=== PATIENT | female | born 1960 | race Caucasian/White ===

== ENCOUNTER → 2016-05-24 | Outpatient (CLI) | payer BC ==
--- NOTE | 2016-05-24 09:00 | REP ---
Clinical: Pain. Technique: AP, lateral, bilateral oblique views of the right foot. Findings: Mild diffuse osteopenia and age-related degenerative changes are appreciated. There is no evidence for acute fracture or dislocation. Lateral view suggests pes planus. Impression: Osteopenia and age-related changes. Signed by Kit Pedraza MD 05/24/2016 08:51 A
--- NOTE | 2016-05-24 12:26 | REP ---
CHEST, TWO VIEWS: COMPARISON: 10/19/2014 There is no evidence of acute infiltrate. No pleural effusion is seen. The heart is normal in size. The mediastinal silhouette is unremarkable. The visualized osseous structures are intact. IMPRESSION: No acute pulmonary disease. Signed by Mathew Jalloh MD 05/24/2016 12:57 P
[2016-05-24 13:25] LABS: BLOOD UREA NITROGEN 19 MG/DL (7-18); CARBON DIOXIDE LEVEL 26 MEQ/L (21-32); CHLORIDE LEVEL 107 MEQ/L (98-107); CREATININE FOR GFR 0.75 MG/DL (0.55-1.02); GLOMERULAR FILTRATION RATE > 60.0 (>51); GLUCOSE, FASTING 123 MG/DL (70-105); POTASSIUM SERUM 4.3 MEQ/L (3.5-5.1); SODIUM LEVEL 142 MEQ/L (136-145)
[2016-05-24 13:26] LABS: ANION GAP 9 MEQ/L (8-16); MAGNESIUM LEVEL 2.3 MG/DL (1.8-2.4); THYROXINE (T4) 12.5 UG/DL (4.5-12.0)
== END ==
LOC: M WUC 08:34
PROVIDERS: ATTEND Nurse Practitioner Family
DX: E03.9 Hypothyroidism, unspecified (principal); R05 Cough; M25.571 Pain in right ankle and joints of right foot

== ENCOUNTER → 2016-07-12 | Outpatient (CLI) | payer BC ==
--- NOTE | 2016-07-13 07:20 | REP ---
MRI RIGHT ANKLE: TECHNIQUE: Sagittal proton density, STIR, axial proton density fat sat, T1, coronal proton density, STIR. The Achilles, anterior tibial, posterior tibial, flexor hallucis longus, flexor digitorum longus and peroneal tendons all appear intact. However, there is mild fluid surrounding the posterior tibial tendon with mild increased signal at its distal aspect, possibly representing mild tenosynovitis and tendinitis or possibly a partial tear of its distal aspect. Anterior and posterior talofibular as well as deltoid ligaments and calcaneofibular ligament are all intact. Plantar tendon is intact. There is no evidence of plantar fascitis. There is a small joint effusion. There is no ganglion cyst. There is marrow edema in the distal end of the fibula. No other abnormal marrow signal is seen. No osteochondral defects are seen at the tibiotalar joint. IMPRESSION: Possible tendinitis or partial tear distal posterior tibial tendon. No other evidence of tendon or ligament tear. Marrow edema in the distal fibula of uncertain significance. This could be post-traumatic bone bruising. Signed by Mathew Jalloh MD 07/13/2016 04:05 P
== END ==
LOC: M RAD 12:30
PROVIDERS: ATTEND Podiatrist
DX: S96.801A Unspecified injury of other specified muscles and tendons at ankle and foot level, right foot, initial encounter (principal); X58.XXXA Exposure to other specified factors, initial encounter; Y93.9 Activity, unspecified; Y92.9 Unspecified place or not applicable; Y99.8 Other external cause status

== ENCOUNTER → 2016-08-27 | Outpatient (CLI) | payer BC ==
[2016-08-27 11:34] LABS: MEAN CORPUSCULAR HEMOGLOBIN 30.8 pg (27.0-33.0); MEAN CORPUSCULAR HGB CONC 34.2 g/dl (32.0-36.5); MEAN CORPUSCULAR VOLUME 90.2 fl (80.0-96.0); RED CELL DISTRIBUTION WIDTH 12.5 % (11.5-14.5); WHITE BLOOD COUNT 9.2 K/mm3 (4.0-10.0)
[2016-08-27 12:18] LABS: ALBUMIN 3.5 GM/DL (3.2-5.2); ALBUMIN/GLOBULIN RATIO 1.13 (1.00-1.93); ALKALINE PHOSPHATASE 102 U/L (45-117); ALT/SGPT 18 U/L (12-78); ANION GAP 5 MEQ/L (8-16); AST/SGOT 9 U/L (15-37); BILIRUBIN,TOTAL 0.4 MG/DL (0.2-1.0); BLOOD UREA NITROGEN 17 MG/DL (7-18); CALCIUM LEVEL 8.8 MG/DL (8.5-10.1); CARBON DIOXIDE LEVEL 28 MEQ/L (21-32); CHLORIDE LEVEL 109 MEQ/L (98-107); CHOLESTEROL LEVEL 178 MG/DL (<200); CREATININE FOR GFR 0.66 MG/DL (0.55-1.02); FREE T4 1.07 NG/DL (0.76-1.46); GLOMERULAR FILTRATION RATE > 60.0 (>51); GLUCOSE, FASTING 90 MG/DL (70-105); POTASSIUM SERUM 4.6 MEQ/L (3.5-5.1); SODIUM LEVEL 142 MEQ/L (136-145); TOTAL PROTEIN 6.6 GM/DL (6.4-8.2); TRIGLYCERIDES LEVEL 67 MG/DL (<150)
== END ==
LOC: M WUC 08:43
PROVIDERS: ATTEND Nurse Practitioner Family
DX: E78.00 Pure hypercholesterolemia, unspecified (principal)

== ENCOUNTER → 2016-09-21 | Outpatient (CLI) | payer BC ==
[~2016-09-21] MED LIST: AMOX875T2 PO; HYDR-3713 PO; IBUP200C10 PO; LEVA1TAB2 PO; MAGN1TAB25 PO; NORCOTAB PO; PREV1CAP PO; SENN1TAB2 PO; TYLE500T78 PO
--- NOTE | 2016-09-21 20:38 | ECGEPIP ---
Stationary ECG Study [facility] Test Date: 2016-09-21 Pat Name: DELMER BUSBY Department: Room: - Gender: F Cigarette Packer: YOSI : 1960 Requested By: Orlando Goetz Order Number: [id number] Reading MD: Orlando Ivey Measurements Intervals [place] Rate: 66 P: 55 NC: 196 QRS: 58 QRSD: 90 T: 51 QT: 401 QTc: 421 Interpretive Statements Normal sinus rhythm. Prominent R waves in V2 through V4. Lead placement versus RVH; rule out prior PWMI Different lead placement from 10/06/15 Electronically Signed On 09-21-2016 20:38:18 EDT by Orlando Ivey
== END ==
LOC: M EKG 12:56
PROVIDERS: ATTEND Podiatrist
DX: Z01.818 Encounter for other preprocedural examination (principal)

== ENCOUNTER → 2016-09-21 | Outpatient (CLI) | payer BC ==
[2016-09-21 09:13] LABS: BASO # 0.1 K/mm3 (0.0-0.2); BASO % 0.6 % (0.0-1.0); EOS # 0.3 K/mm3 (0.0-0.50); LARGE UNSTAINED CELL # 0.2 K/mm3 (0.0-0.4); LARGE UNSTAINED CELL % 2.1 % (0.0-4.0); LYMPH % 25.6 % (24.0-44.0); MEAN CORPUSCULAR HEMOGLOBIN 30.8 pg (27.0-33.0); MEAN CORPUSCULAR HGB CONC 33.9 g/dl (32.0-36.5); MEAN CORPUSCULAR VOLUME 90.9 fl (80.0-96.0); MONO # 0.8 K/mm3 (0.0-0.8); MONO % 6.8 % (0.0-5.0); NEUTROPHILS # 7.2 K/mm3 (1.8-7.7); PLATELET COUNT, AUTOMATED 208 k/mm3 (150-450); RED CELL DISTRIBUTION WIDTH 12.4 % (11.5-14.5); WHITE BLOOD COUNT 11.6 K/mm3 (4.0-10.0)
[2016-09-21 09:42] LABS: ANION GAP 7 MEQ/L (8-16); BLOOD UREA NITROGEN 19 MG/DL (7-18); CARBON DIOXIDE LEVEL 26 MEQ/L (21-32); CHLORIDE LEVEL 109 MEQ/L (98-107); CREATININE FOR GFR 0.65 MG/DL (0.55-1.02); GLOMERULAR FILTRATION RATE > 60.0 (>51); GLUCOSE, FASTING 87 MG/DL (70-105); POTASSIUM SERUM 4.8 MEQ/L (3.5-5.1); SODIUM LEVEL 142 MEQ/L (136-145)
== END ==
LOC: M WUC 08:04
PROVIDERS: ATTEND Podiatrist
DX: Z01.818 Encounter for other preprocedural examination (principal)

== ENCOUNTER → 2016-09-30 | Day surgery (SDC) | payer BC ==
[~2016-09-30] VITALS: Ht 157.5 cm; Wt 81.6 kg
[~2016-09-30] MED LIST changes: +BACITRACIN PWD 50,000 UNITS VIAL As Ordered ONE; +BUPIVACAINE HCL 0.5% 30 ML VIAL As Ordered ONE; +GLYCOPYRROLATE INJ 0.2 MG/ML 2 ML VIAL As Ordered ONE; +HYDROmorphone HCL 2 MG/ML 1ML VIAL (J1170) As Ordered ONE; +LIDOCAINE 2% INJ 100 MG/5 ML SDV (FOR ANES.) As Ordered ONE; +LIDOCAINE 2% MDV 20 ML VIAL As Ordered ONE; +LR 1,000 ML IV ONE; +LR 1,000 ML IV SCH; +METOCLOPRAMIDE INJ 10MG/2ML VIAL (J2765) As Ordered ONE; +METOCLOPRAMIDE INJ 10MG/2ML VIAL (J2765) IV ONE; +MIDAZOLAM INJ 2 MG/2 ML VIAL (J2250) As Ordered ONE; +NEOSPORIN GU IRRIG 20 ML VIAL As Ordered ONE; +NEOSTIGMINE 1MG/ML 5 ML SYRINGE (J2710) As Ordered ONE; +NORCO, ANEXSIA 5/325MG TABLET (HYDROcodone/ACETAMINOPHEN) PO PRN; +ONDANSETRON 4MG/2ML VIAL (J2405) As Ordered ONE; +ONDANSETRON 4MG/2ML VIAL (J2405) IV PRN; +PROPOFOL 200 MG/20 ML VIAL As Ordered ONE; +ROCURONIUM BROMIDE 50 MG/5 ML VIAL/SYRINGE As Ordered ONE; +dexameTHASONE 4 MG/ML 1ML VIAL (J1100) As Ordered ONE; +ePHEDrine SULFATE 25 MG/5 ML(5MG/ML) SYRINGE As Ordered ONE; +fentaNYL 100 MCG/2 ML INJECTION (J3010) As Ordered ONE
--- NOTE | 2016-09-30 12:13 | REP ---
REASON: Postop. Bandage material obscures bony detail. COMPARISON: Preoperative exam of 05/24/2016. Four portable views were obtained status post posterior tibial tendon repair. Fixation plate and screws seen affixing the os calcis. There are no other significant changes from the prior exam. Signed by Chriss Arrieta DO 09/30/2016 04:42 P
[2016-09-30 14:52] VITALS: BP 138/69
--- NOTE | 2016-09-30 16:40 | REP ---
C-ARM VIEWS RIGHT CALCANEUS: Multiple C-Arm views are performed of the right calcaneus. Metallic plate and screws are seen in the calcaneus. 40 seconds of fluoroscopy time utilized. The structures appear well aligned. Signed by Mathew Jalloh MD 09/30/2016 05:59 P
--- NOTE | 2016-10-01 19:47 | RO ---
DATE OF PROCEDURE: 09/30/2016 PREOPERATIVE DIAGNOSES: Posterior tibial tendon dysfunction, right foot. POSTOPERATIVE DIAGNOSES: Posterior tibial tendon dysfunction, right foot. PROCEDURES PERFORMED: 1. Debridement posterior tibial tendon right foot. 2. Flexor digitorum longus tendon transfer to the navicular with a 5.5 x 15 mm Arthrex biocomposite interference screw. 3. Medial calcaneal slide osteotomy with a right medical 8 mm calcaneal displacement plate with screw fixation. SURGEON: Orlando Goetz DPM TAKER OFF BRAKER MACHINE: None. SPECIMEN: Pathologic posterior tibial tendon. ANESTHESIA: ESTIMATED BLOOD LOSS: Less than 40 mL. HARDWARE UTILIZED: Arthrex biocomposite 5.5 x 15 mm interference screw. A right medical 8 [address] displacement place with nonlocking and locking screw configurations, nonlocking 3.5 x 30 mm times two and locking plates 3.5 x 28 and 3.5 x 26. IRRIGATION: Dilute bacitracin, neomycin, and polymyxin B solution. HEMOSTASIS: Thigh pneumatic tourniquet at 300 mmHg for inflation for 80 minutes with a 20 mm downtime and a reinflation for 28 minutes at the right thigh. DESCRIPTION OF OPERATION: On 09/05/2016, this 56-year-old white female was taken from her hospital room to the operating room and placed on the operating table in the supine position. Following the induction of intravenous (IV) sedation and local and regional anesthesia, the right lower extremity was prepped and draped in the usual aseptic manner. Thigh pneumatic tourniquet was then rapidly inflated to 300 mmHg. Attention was directed to the medial surface of the foot and the following procedure was performed: DEBRIDEMENT POSTERIOR TIBIAL TENDON RIGHT FOOT: Attention was directed to the patients right foot where an incision was made from the distal tip of the medial malleolus directly over the posterior tibial tendon and curving inferiorly under the navicular onto the medial sole of the foot. Dissection was then carried down to the flexor tendon sheath. All bleeders encountered were electrocoagulated. The flexor digitorum longus tendon sheath was entered. Considerable fluid was noted. Adhesions were noted of the complete tendon approximately from the insertion point to 4 cm superior. The tendon was fibrotic, thickened and pathologic, therefore was not salvageable. The tendon was then debrided from its insertion point to viable tendon. The following procedure was performed: FLEXOR DIGITORUM LONGUS TENDON TRANSFER TO THE NAVICULAR WITH ANCHORING WITH A 5.5 x 15 MM BIOCOMPOSITE INTERFERENCE SCREW: The flexor digitorum longus tendon sheath was then entered and the tendon was then traced down to the master knot of Best. Care was taken at the abductor hallucis area where there is noted to be numerous venous structures. This was dissected down with electrocautery. All bleeders encountered were electrocoagulated. Minimal bleeding was seen. Gelfoam was then placed right at the master knot of Best where the flexor digitorum longus tendon was transected and pulled into the operative site. Utilizing #2-FiberWire the distal aspect of the posterior tibial tendon was ligated to prevent migration of the posterior tibial tendon. A cut was then placed into the posterior tibial tendon and the flexor digitorum longus tendon was weaved through the tendon utilizing C-ARM imagery. A guidewire was placed into the navicular. When adequate placement was visualized a 5.5 drill was then introduced, creating a socket 5.5 x 15 mm in depth and then this was removed. Utilizing a speed-whip a fiber wire suture the flexor digitorum longus distal end was stitched, grabbed with a placement device and placed into the socket where a 5.5 x 15 mm screw was drilled into the socket holding the flexor digitorum longus tendon in place with good physiologic tension which was measured prior to placement. This was then oversewn over the screw. Physiologic tension was then placed on the posterior tibial tendon and this was sutured to the flexor digitorum longus tendo with 32 fiber wire. The wound was flushed with copious amounts of dilute bacitracin, neomycin, and polymyxin B solution. The flexor sheath was repaired with #2-0 Monocryl. Subcutaneous tissues were coapted and maintained using #4-0 Monocryl and the skin was coapted and maintained using #4-0 Prolene. A sterile dressing was temporarily applied following by quintin Harrington. Thigh pneumatic tourniquet was deflated. After 20 minutes it was replaced on the limb and the tourniquet was reinflated at 300 mmHg for 48 minutes. Attention was directed to the lateral side of the foot where the patient was placed in the lateral decubitus deposition with the lateral aspect of the right foot in a superior direction. A small 4 cm incision was then placed over the lateral calcaneus paralleling the peroneal tendons at a 45 degree angle to the plantar surface of the foot making care to ensure that the lateral tuberosity was visible in the distal wound. Care was taken with dissection to avoid the serial nerve. This was retracted in a proximal direction. Peroneal tendons were left in a more distal position. Incision was made utilizing a periosteal elevator just where the osteotomy would be performed. A osteotomy was created through the lateral aspect of the heel, taken to the medial periostia. This was completed with an osteotome and loosened so medial distraction would be obtainable. Utilizing a right medial 8 mm displacement plate with the displacement arm appropriately position on the proximal segment, the calcaneus was transposed 8 mm and fixated with nonlocking screws on the proximal segment and the distal segment had locking screw interfaces, locking screws were utilized. Screws utilized were a nonlocking 30 mm times two along the proximal segment. The distal segment had locking screw configuration of 3.5 x 28 and a 3.5 x 26 mm screws. Intraoperative C-ARM imagery revealed good position of the distal fragment with no dorsal displacement of the osteotomy. The wound was flushed with copious amount of dilute bacitracin, neomycin, and polymyxin B solution. The lateral cortex was then coapted and maintained with #2-0 Monocryl in a simple interrupted type fashion. Subcutaneous tissues were coapted and maintained with #4-0 Monocryl in a simple interrupted type fashion. Skin incision was coapted and maintained using #4-0 Prolene and a simple interrupted in a mattress type fashion. A TLS drain was then placed in the wound it was placed under the deep closure in direct contact with the calcaneus. It was exiting proximally out of the foot and sutured in place with #3-0 silk. Bandages were applied with adaptic 4x4, 4 x4 splint and Kerlix. Thigh pneumatic tourniquet was deflated and a Welsh compressive dressing with a posterior splint was then applied with the patient's foot at a right angle to the lower leg. TLS drain was functioning satisfactorily. Patient will be further monitored by anesthesia. Postoperative instructions were given upon discharge.
== END | disposition home or self-care (01) ==
LOC: M SDC 05:58
PROVIDERS: ATTEND Podiatrist
DX: M76.821 Posterior tibial tendinitis, right leg (principal); M66.371 Spontaneous rupture of flexor tendons, right ankle and foot; K21.9 Gastro-esophageal reflux disease without esophagitis; Z88.2 Allergy status to sulfonamides; Z88.6 Allergy status to analgesic agent; Z79.899 Other long term (current) drug therapy; Z90.710 Acquired absence of both cervix and uterus
CPT/HCPCS: 27691; 28300; 73630; 76000; 88302; 97116; C1776; J0690; J1100; J1170; J2250; J2405; J2710; J2765; J3010

== ENCOUNTER 2016-12-25 12:23 | Day surgery (SDC) | payer BC ==
[~2016-12-25] VITALS: Ht 157.5 cm; Wt 84.8 kg
[~2016-12-25 12:23] MED LIST changes: -AMOX875T2 PO; -BACITRACIN PWD 50,000 UNITS VIAL As Ordered ONE; -BUPIVACAINE HCL 0.5% 30 ML VIAL As Ordered ONE; -GLYCOPYRROLATE INJ 0.2 MG/ML 2 ML VIAL As Ordered ONE; -HYDR-3713 PO; -HYDROmorphone HCL 2 MG/ML 1ML VIAL (J1170) As Ordered ONE; -IBUP200C10 PO; -LEVA1TAB2 PO; -LIDOCAINE 2% INJ 100 MG/5 ML SDV (FOR ANES.) As Ordered ONE; -LIDOCAINE 2% MDV 20 ML VIAL As Ordered ONE; -LR 1,000 ML IV ONE; -LR 1,000 ML IV SCH; -METOCLOPRAMIDE INJ 10MG/2ML VIAL (J2765) As Ordered ONE; -METOCLOPRAMIDE INJ 10MG/2ML VIAL (J2765) IV ONE; -MIDAZOLAM INJ 2 MG/2 ML VIAL (J2250) As Ordered ONE; -NEOSPORIN GU IRRIG 20 ML VIAL As Ordered ONE; -NEOSTIGMINE 1MG/ML 5 ML SYRINGE (J2710) As Ordered ONE; -NORCO, ANEXSIA 5/325MG TABLET (HYDROcodone/ACETAMINOPHEN) PO PRN; -NORCOTAB PO; -ONDANSETRON 4MG/2ML VIAL (J2405) As Ordered ONE; -ONDANSETRON 4MG/2ML VIAL (J2405) IV PRN; -PROPOFOL 200 MG/20 ML VIAL As Ordered ONE; -ROCURONIUM BROMIDE 50 MG/5 ML VIAL/SYRINGE As Ordered ONE; -SENN1TAB2 PO; -TYLE500T78 PO; -dexameTHASONE 4 MG/ML 1ML VIAL (J1100) As Ordered ONE; -ePHEDrine SULFATE 25 MG/5 ML(5MG/ML) SYRINGE As Ordered ONE; -fentaNYL 100 MCG/2 ML INJECTION (J3010) As Ordered ONE
[2016-12-25] MEDS ORDERED: MORPHINE 10 MG/ML 1ML VIAL IV ONE (14:00)
[2016-12-25] MEDS ORDERED: ONDANSETRON 4MG/2ML VIAL (J2405) IV ONE (14:00)
[2016-12-25 14:43] LABS: MEAN CORPUSCULAR HEMOGLOBIN 29.6 pg (27.0-33.0); MEAN CORPUSCULAR HGB CONC 33.7 g/dl (32.0-36.5); PLATELET COUNT, AUTOMATED 193 10^3/uL (150-450); RED CELL DISTRIBUTION WIDTH 12.4 % (11.5-14.5); WHITE BLOOD COUNT 22.6 10^3/uL (4.0-10.0)
[2016-12-25 14:45] LABS: ADD MANUAL DIFFER YES; DIFF SLIDE NUMBER 145; POSITIVE DIFF POS FLAG
[2016-12-25 14:56] LABS: ALBUMIN 3.4 GM/DL (3.2-5.2); ALBUMIN/GLOBULIN RATIO 0.83 (1.00-1.93); ALKALINE PHOSPHATASE 114 U/L (45-117); ALT/SGPT 20 U/L (12-78); ANION GAP 7 MEQ/L (8-16); AST/SGOT 9 U/L (15-37); BILIRUBIN,DIRECT 0.2 MG/DL (0.0-0.2); BILIRUBIN,TOTAL 0.8 MG/DL (0.2-1.0); BLOOD UREA NITROGEN 14 MG/DL (7-18); CALCIUM LEVEL 8.9 MG/DL (8.5-10.1); CARBON DIOXIDE LEVEL 24 MEQ/L (21-32); CHLORIDE LEVEL 104 MEQ/L (98-107); CREATININE FOR GFR 0.63 MG/DL (0.55-1.02); GLOMERULAR FILTRATION RATE > 60.0 (>51); GLUCOSE, FASTING 127 MG/DL (70-105); POTASSIUM SERUM 4.1 MEQ/L (3.5-5.1); SODIUM LEVEL 135 MEQ/L (136-145); TOTAL PROTEIN 7.5 GM/DL (6.4-8.2)
[2016-12-25 15:05] LABS: TOXIC VACUOLATION 1+
[2016-12-25] MEDS ORDERED: ISOVUE-370 76% 100ML VIAL (Q9967) As Ordered ONE (15:56)
--- NOTE | 2016-12-25 16:56 | REP ---
CT of the abdomen and pelvis with IV contrast, without bowel contrast: Comparison is 10/11/2007. The visualized lung siegel are unremarkable. The hepatic parenchyma is homogeneous. There are surgical clips in the gallbladder fossa. This is unchanged. There is mild dilatation of the intrahepatic extra panic biliary ducts, likely from post cholecystectomy state. The pancreas and spleen are unremarkable. The adrenals, kidneys and abdominal aorta are unremarkable. There is no bowel distension. The appendix is distended measuring 13 ml in diameter. There is periappendiceal phlegmon. Within this phlegmon there is a collection of tiny air or gas bubbles compatible with contained perforation. Pelvis: There is a hysterectomy. Vaginal cuff and adnexa are unremarkable. The urinary bladder is unremarkable. There is no adenopathy or ascites. The pelvic bowel loops are unremarkable. Impression: Findings are compatible with perforated appendicitis with a contained perforation. Signed by Mathew Jacob MD 12/25/2016 04:48 P
[2016-12-25] MEDS ORDERED: PIPERACILLIN/TAZOBACTAM SOD 3.375 GM in D5W 50 ML IV ONE (17:30)
[2016-12-25] MEDS ORDERED: MIDAZOLAM INJ 2 MG/2 ML VIAL (J2250) As Ordered ONE (17:34)
[2016-12-25] MEDS ORDERED: ZOSYN 3.375 GM VIAL (J2543) As Ordered ONE (17:34)
[2016-12-25] MEDS ORDERED: fentaNYL 250 MCG/5 ML INJECTION (J3010) As Ordered ONE (17:35)
[2016-12-25] MEDS ORDERED: ROCURONIUM BROMIDE 50 MG/5 ML VIAL/SYRINGE As Ordered ONE (17:36)
[2016-12-25] MEDS ORDERED: LIDOCAINE 2% INJ 100 MG/5 ML SDV (FOR ANES.) As Ordered ONE (17:38)
[2016-12-25] MEDS ORDERED: PROPOFOL 200 MG/20 ML VIAL As Ordered ONE (17:38)
[2016-12-25] MEDS ORDERED: BUPIVACAINE/EPIN 0.25% 30 ML VIAL As Ordered ONE (18:16)
[2016-12-25] MEDS ORDERED: PHENYLephrine HCL 500 MCG/5 ML (100MCG/ML) SYRINGE (J2370) As Ordered ONE (19:05)
[2016-12-25] MEDS ORDERED: METOCLOPRAMIDE INJ 10MG/2ML VIAL (J2765) As Ordered ONE (19:12)
[2016-12-25] MEDS ORDERED: ONDANSETRON 4MG/2ML VIAL (J2405) As Ordered ONE (19:18)
[2016-12-25] MEDS ORDERED: NEOSTIGMINE 10 MG/10 ML VIAL (J2710) As Ordered ONE (19:24)
[2016-12-25] MEDS ORDERED: GLYCOPYRROLATE INJ 0.2 MG/ML 2 ML VIAL As Ordered ONE (19:24)
[2016-12-25] MEDS ORDERED: KETOROLAC 60 MG/2 ML VIAL (J1885) As Ordered ONE (19:28)
[2016-12-25] MEDS ORDERED: HYDROmorphone HCL 1 MG/ML SYRINGE (J1170) IV PRN (20:00)
[2016-12-25] MEDS ORDERED: PERCOCET 5MG/325MG TAB PO PRN (20:00)
[2016-12-25] MEDS ORDERED: LR 1,000 ML IV SCH (20:00)
[2016-12-25] MEDS ORDERED: MORPHINE 2 MG/ML 1ML SYRINGE IV PRN (20:00)
[2016-12-25] MEDS ORDERED: NORCO, ANEXSIA 5/325MG TABLET (HYDROcodone/ACETAMINOPHEN) PO PRN (20:00)
[2016-12-25] MEDS ORDERED: ONDANSETRON 4MG/2ML VIAL (J2405) IV PRN ×2 (20:00)
[2016-12-25] MEDS ORDERED: fentaNYL 100 MCG/2 ML INJECTION (J3010) IV PRN (20:00)
[2016-12-25 20:45] VITALS: BP 112/60
[2016-12-25] MEDS: LR 1,000 ML IV SCH (21:09)
[2016-12-25] MEDS: SENOKOT S TAB PO SCH (21:09)
[2016-12-25] MEDS: KETOROLAC 30 MG/ML VIAL (J1885) IV PRN (21:09)
[2016-12-25 21:15] VITALS: BP 119/57
[2016-12-25 21:45] VITALS: BP 112/53
[2016-12-25] MEDS: HEPARIN SOD (PORCINE) 5000 UNITS/ML VIAL SC SCH (22:38)
[2016-12-25 22:45] VITALS: BP 117/55
[2016-12-25 23:45] VITALS: BP 117/56
[2016-12-25] MEDS: PIPERACILLIN/TAZOBACTAM SOD 3.375 GM in D5W 50 ML IV SCH (23:54)
[2016-12-26] VITALS (7 sets, daily range): BP systolic 99–116; BP diastolic 50–62
[2016-12-26] MEDS: ACETAMINOPHEN TAB 650MG DOSE (2X325MG) PO PRN ×2 (00:45→09:23)
[2016-12-26] MEDS: HEPARIN SOD (PORCINE) 5000 UNITS/ML VIAL SC SCH ×3 (05:42→21:05)
[2016-12-26] MEDS: KETOROLAC 30 MG/ML VIAL (J1885) IV PRN ×3 (05:43→21:20)
[2016-12-26] MEDS: PIPERACILLIN/TAZOBACTAM SOD 3.375 GM in D5W 50 ML IV SCH ×3 (05:43→17:55)
[2016-12-26] MEDS: LR 1,000 ML IV SCH (07:20)
[2016-12-26 08:37] LABS: MEAN CORPUSCULAR HGB CONC 33.2 g/dl (32.0-36.5); MEAN CORPUSCULAR VOLUME 90.3 fl (80.0-96.0); PLATELET COUNT, AUTOMATED 181 10^3/uL (150-450); RED CELL DISTRIBUTION WIDTH 12.7 % (11.5-14.5); WHITE BLOOD COUNT 18.9 10^3/uL (4.0-10.0)
[2016-12-26] MEDS ORDERED: LANSOPRAZOLE SUSPENSION 30 MG/10 ML ORAL SYRINGE (FIRST-LANSOPRAZOLE) PO SCH (09:00)
[2016-12-26] MEDS: SENOKOT S TAB PO SCH ×2 (09:11→21:04)
[2016-12-26 09:12] LABS: CALCIUM LEVEL 8.6 MG/DL (8.5-10.1); CREATININE FOR GFR 1.01 MG/DL (0.55-1.02); GLOMERULAR FILTRATION RATE 59.9 (>51); MAGNESIUM LEVEL 1.9 MG/DL (1.8-2.4); POTASSIUM SERUM 4.1 MEQ/L (3.5-5.1)
--- NOTE | 2016-12-26 09:16 | HPE ---
DATE OF ADMISSION: 12/25/2016 CHIEF COMPLAINT: Right lower quadrant pain. HISTORY OF PRESENT ILLNESS: The patient is a 56-year-old female who presents with right lower quadrant pain that started yesterday. She has had some chills and fever, a little bit of nausea, no other complaints at home. No recent trauma or travel. No recent illnesses. No changes to bowel movements. No problems or pain with urination. In the emergency room (ER), she had a fever of 102, elevated leukocytosis, as well as a CT that confirmed appendicitis with a periappendiceal phlegmon. Therefore, I was called to evaluate. ALLERGIES: ASPIRIN, SULFA, NITROFURANTOIN. HOME MEDICATIONS: None. MEDICAL HISTORY: Negative. PAST SURGICAL HISTORY: 1. Cholecystectomy. 2. Hysterectomy. 3. Ankle surgery. SOCIAL HISTORY: Denies drug, alcohol, tobacco abuse. FAMILY HISTORY: Noncontributory. REVIEW OF SYSTEMS: Pertinent positives as stated in the history of present illness (HPI). PHYSICAL EXAMINATION: General: Alert and oriented times three. No acute distress. Vital signs: Temperature 102.2, pulse 103, respirations 18, blood pressure 142/65, pulse oximetry 95% on room air. HEENT: Pupils equally round and react to light and accommodation. Heart: S1, S2, regular rate and rhythm. Lungs: Clear to auscultation bilaterally. Abdomen: Soft, tender to palpation right lower quadrant. Localized guarding, no rebounding or rigidity. Bowel sounds positive. Extremities: No clubbing, cyanosis or edema. LABORATORY DATA: White count 22.6, hemoglobin 14.1, platelets 193. IMAGING STUDIES: CT abdomen and pelvis shows dilated appendix at 13 mm with periappendiceal phlegmon with a collection of tiny area and gas bubbles suspicious for perforation. ASSESSMENT/PLAN: The patient is a 56-year-old female with signs of perforated appendicitis. RECOMMENDATIONS: Proceed with laparoscopic, possible open appendectomy. Risks and procedure of procedure not limited to but including bleeding, infection, hernia formation, damage to surrounding structure, need for further surgery were discussed in detail with the patient. Informed consent was obtained. Procedure was planned urgently. Postoperatively, she will be kept in the hospital with intravenous (IV) fluids, antibiotics and likely will have a drain in place. Once she is afebrile for 24 hours and her white count shows signs of improvement, she will be discharged home with oral antibiotics.
--- NOTE | 2016-12-26 09:18 | RO ---
DATE OF PROCEDURE: 12/25/2016 PREOPERATIVE DIAGNOSIS: Perforated appendicitis. POSTOPERATIVE DIAGNOSIS: Perforated appendicitis. PROCEDURE: Laparoscopic appendectomy. SURGEON: Dr. Mathew Mark SALES REPRESENTATIVE FACILITY SERVICES: None. ANESTHESIA: General. ESTIMATED BLOOD LOSS: 5 mL. COMPLICATIONS: None. INDICATIONS FOR PROCEDURE: The patient is a 56-year female who presents with acute appendicitis with right lower quadrant pain, found to have likely perforated appendix on CT. Recommendation to proceed with laparoscopic, possible open appendectomy. Risks and benefits of the procedure not limited to but including bleeding, infection, hernia formation, damage to surrounding structures and need for further surgery discussed in detail with the patient Informed consent was obtained and procedure was planned. DESCRIPTION OF PROCEDURE: The patient was brought back to operating room #1 after sufficient sedation. The abdomen was sterilely prepped and draped. Next, a time-out was done to confirm proper patient, proper procedure. Next, a 5 mm incision made in the left upper quadrant, Veress needle was inserted and the abdomen was insufflated to 15 mmHg. Next, the Veress needle was removed. A 5 mm Optiview port was used to gain access to the abdomen. Once the abdomen was entered, another 10 mm port was placed supraumbilically in the midline, another 5 mm port in the right lower quadrant. The omentum was carefully teased off of the right lower quadrant revealing a large phlegmon with two loops of small bowel that were densely adhered over top of it. These were carefully bluntly dissected off. Once doing so, the appendix was revealed. The mesoappendix was carefully taken down using the Enseal until the base was reached. Once the base was reached, it was ligated twice with PDS Endoloops and then amputated using the Enseal. The appendix was then brought out through the supraumbilical port site using a 10 mm EndoCatch bag. Fluid from the phlegmon was aspirated from the right lower quadrant, followed by placement of a #19-Portuguese Az drain. Abdomen was then desufflated. Skin incision was closed with #4-0 Vicryl subcuticular sutures, #2-0 silk suture was used to tie the drain in place. The abdomen was then cleaned and dried. Steri-Strips, 4 x 4 and tape were applied, thus ending procedure.
[2016-12-26] MEDS ORDERED: SLF 3 ML SYR IV PRN (14:30)
[2016-12-26] MEDS: SLF 3 ML SYR IV SCH (21:05)
[2016-12-27] MEDS: PIPERACILLIN/TAZOBACTAM SOD 3.375 GM in D5W 50 ML IV SCH ×2 (00:10→06:35)
[2016-12-27 00:22] VITALS: BP 101/54
[2016-12-27] MEDS: ACETAMINOPHEN TAB 650MG DOSE (2X325MG) PO PRN ×2 (01:24→06:36)
[2016-12-27] MEDS: HEPARIN SOD (PORCINE) 5000 UNITS/ML VIAL SC SCH (06:35)
[2016-12-27] MEDS: SLF 3 ML SYR IV SCH (06:35)
[2016-12-27 06:49] LABS: MEAN CORPUSCULAR HEMOGLOBIN 29.4 pg (27.0-33.0); MEAN CORPUSCULAR HGB CONC 33.2 g/dl (32.0-36.5); MEAN CORPUSCULAR VOLUME 88.5 fl (80.0-96.0); PLATELET COUNT, AUTOMATED 152 10^3/uL (150-450); RED CELL DISTRIBUTION WIDTH 12.9 % (11.5-14.5); WHITE BLOOD COUNT 11.2 10^3/uL (4.0-10.0)
[2016-12-27 07:04] LABS: ANION GAP 6 MEQ/L (8-16); BLOOD UREA NITROGEN 20 MG/DL (7-18); CALCIUM LEVEL 8.3 MG/DL (8.5-10.1); CARBON DIOXIDE LEVEL 26 MEQ/L (21-32); CHLORIDE LEVEL 108 MEQ/L (98-107); CREATININE FOR GFR 0.84 MG/DL (0.55-1.02); GLOMERULAR FILTRATION RATE > 60.0 (>51); GLUCOSE, FASTING 99 MG/DL (70-105); POTASSIUM SERUM 3.4 MEQ/L (3.5-5.1); SODIUM LEVEL 140 MEQ/L (136-145)
[2016-12-27] MEDS ORDERED: AUGMENTIN 875 MG TAB PO SCH (09:00)
[2016-12-27] MEDS ORDERED: LANSOPRAZOLE 30 MG PO SCH (09:00)
[2016-12-27] MEDS: SENOKOT S TAB PO SCH (09:12)
[2016-12-27 09:15] VITALS: BP 113/60
[2016-12-27] MEDS ORDERED: SENN1TAB2 PO ×2 (10:54→18:39)
[2016-12-27] MEDS ORDERED: AMOX875T2 PO ×2 (10:54→18:39)
[2016-12-27] MEDS ORDERED: NORCOTAB PO (10:54)
[2016-12-27] MEDS ORDERED: HYDR-3713 PO (18:39)
--- NOTE | 2016-12-28 13:56 | DSES ---
DATE OF ADMISSION: 12/25/2016 DATE OF DISCHARGE: 12/27/2016 ADMISSION DIAGNOSIS: Perforated appendicitis. DISCHARGE DIAGNOSIS: Perforated appendicitis. HOSPITAL COURSE: The patient is a 56-year-old female who presented on 12/25/2016 with a diagnosis of perforated appendicitis and right lower quadrant pain. She was brought to the operating room for urgent laparoscopic appendectomy with drain placement on the afternoon of the . Postoperatively, she did well. She had a drain in place. She was started on regular diet and IV antibiotics. On the morning of the , her drain output was low at 30 mL, serosanguineous. No bowel movements or anything, but her pain was significantly improved. No nausea or vomiting, tolerating a diet, and she was up ambulating in the halls. Due to some fevers up to 100.8, she was overnight on the , also due to her high white count that was 22.6 on admission and down to 18.9. By the next day, 12/27/2016, her white count had dropped from 18.9 to 11.2. Her drain output was still small with only 60 mL in 24 hours. She had been afebrile for 24 hours. She was feeling better, the drain color was more serous this morning and the plan was to discharge her home today. She was given pain pills, stool softener and antibiotic to take when she went home. She was started on Augmentin upon discharge and the drain was also removed prior to discharge. She was given instructions to follow up me in the office in 2 weeks. If she had any problems with nausea, vomiting, fevers or increasing pain, she was advised to call the office and return to the emergency room for reevaluation. Otherwise, we would see her in the office.
== END 2016-12-27 11:30 | disposition home or self-care (01) ==
LOC: M ED 12:23 → M SDC 17:25 → M PED 20:43 → M SDC 12-27 11:30
PROVIDERS: ATTEND Surgery
DX: K35.2 Acute appendicitis with generalized peritonitis (principal); K21.9 Gastro-esophageal reflux disease without esophagitis; Z88.1 Allergy status to other antibiotic agents; Z88.2 Allergy status to sulfonamides; Z88.6 Allergy status to analgesic agent; Z79.899 Other long term (current) drug therapy; Z72.0 Tobacco use
CPT/HCPCS: 36415; 44970; 74177; 80048; 80076; 81001; 83690; 83735; 85025; 85027; 88304; 96366; 96367; 96372; 96374; 96375; 96376; 99284; J1885; J2250; J2370; J2405; J2543; J2710; J2765; J3010; Q9967

== ENCOUNTER 2016-12-27 17:09 | Inpatient (IN) | payer BC ==
[~2016-12-27] VITALS: Ht 157.5 cm; Wt 90.4 kg
[~2016-12-27 17:09] MED LIST changes: +AMOX875T2 PO; +NORCOTAB PO; +SENN1TAB2 PO
[2016-12-27] MEDS ORDERED: NS 1,000 ML IV SCH (18:00)
[2016-12-27] MEDS ORDERED: ACETAMINOPHEN TAB 650MG DOSE (2X325MG) PO ONE (18:00)
[2016-12-27 18:03] LABS: BASO % 0.2 % (0.0-1.0); EOS # 0.1 10^3/uL (0.0-0.50); EOS % 0.6 % (0.0-3.0); IMMATURE GRANULOCYTE % 0.4 % (0-0); LYMPH # 0.7 10^3/uL (1.5-4.5); LYMPH % 6.1 % (24.0-44.0); MEAN CORPUSCULAR HEMOGLOBIN 30.1 pg (27.0-33.0); MEAN CORPUSCULAR HGB CONC 33.9 g/dl (32.0-36.5); MEAN CORPUSCULAR VOLUME 88.8 fl (80.0-96.0); MONO # 0.5 10^3/uL (0.0-0.8); MONO % 4.5 % (0.0-5.0); NEUTROPHILS # 10.1 10^3/uL (1.8-7.7); NEUTROPHILS % 88.2 % (36.0-66.0); PLATELET COUNT, AUTOMATED 160 10^3/uL (150-450); RED CELL DISTRIBUTION WIDTH 12.7 % (11.5-14.5); WHITE BLOOD COUNT 11.4 10^3/uL (4.0-10.0)
[2016-12-27 18:08] LABS: ANION GAP 6 MEQ/L (8-16); BLOOD UREA NITROGEN 18 MG/DL (7-18); CALCIUM LEVEL 8.3 MG/DL (8.5-10.1); CARBON DIOXIDE LEVEL 25 MEQ/L (21-32); CHLORIDE LEVEL 109 MEQ/L (98-107); CREATININE FOR GFR 0.64 MG/DL (0.55-1.02); GLOMERULAR FILTRATION RATE > 60.0 (>51); GLUCOSE, FASTING 94 MG/DL (70-105); POTASSIUM SERUM 3.8 MEQ/L (3.5-5.1); SODIUM LEVEL 140 MEQ/L (136-145)
[2016-12-27] MEDS ORDERED: PIPERACILLIN/TAZOBACTAM SOD 3.375 GM in D5W 50 ML IV ONE (18:15)
[2016-12-27] MEDS ORDERED: HYDR-3713 PO (18:39)
[2016-12-27] MEDS ORDERED: SENN1TAB2 PO (18:39)
[2016-12-27] MEDS ORDERED: AMOX875T2 PO (18:39)
[2016-12-27] MEDS ORDERED: NORCO, ANEXSIA 5/325MG TABLET (HYDROcodone/ACETAMINOPHEN) PO PRN (21:30)
[2016-12-27] MEDS ORDERED: ONDANSETRON 4MG/2ML VIAL (J2405) IV PRN (21:30)
[2016-12-27 22:10] VITALS: BP 123/58
[2016-12-27] MEDS ORDERED: KETOROLAC 30 MG/ML VIAL (J1885) IV PRN (22:30)
[2016-12-27] MEDS: SENOKOT S TAB PO SCH (22:42)
[2016-12-28] MEDS: PIPERACILLIN/TAZOBACTAM SOD 3.375 GM in D5W 50 ML IV SCH ×4 (01:51→18:22)
[2016-12-28] MEDS: ACETAMINOPHEN TAB 650MG DOSE (2X325MG) PO PRN ×3 (05:24→18:48)
[2016-12-28 06:00] VITALS: BP_SYST 120; BP_SYST 129; BP_DIAS 61; BP_DIAS 62
[2016-12-28 06:05] LABS: BASO % 0.2 % (0.0-1.0); EOS # 0.1 10^3/uL (0.0-0.50); EOS % 1.7 % (0.0-3.0); IMMATURE GRANULOCYTE % 0.5 % (0-0); LYMPH # 0.9 10^3/uL (1.5-4.5); LYMPH % 10.2 % (24.0-44.0); MEAN CORPUSCULAR HEMOGLOBIN 29.2 pg (27.0-33.0); MEAN CORPUSCULAR HGB CONC 33.2 g/dl (32.0-36.5); MONO # 0.6 10^3/uL (0.0-0.8); MONO % 6.6 % (0.0-5.0); NEUTROPHILS # 6.8 10^3/uL (1.8-7.7); NEUTROPHILS % 80.8 % (36.0-66.0); PLATELET COUNT, AUTOMATED 153 10^3/uL (150-450); RED CELL DISTRIBUTION WIDTH 12.7 % (11.5-14.5); WHITE BLOOD COUNT 8.4 10^3/uL (4.0-10.0)
[2016-12-28 06:23] LABS: ANION GAP 8 MEQ/L (8-16); BLOOD UREA NITROGEN 16 MG/DL (7-18); CALCIUM LEVEL 8.3 MG/DL (8.5-10.1); CARBON DIOXIDE LEVEL 25 MEQ/L (21-32); CHLORIDE LEVEL 108 MEQ/L (98-107); CREATININE FOR GFR 0.62 MG/DL (0.55-1.02); GLOMERULAR FILTRATION RATE > 60.0 (>51); GLUCOSE, FASTING 90 MG/DL (70-105); POTASSIUM SERUM 3.4 MEQ/L (3.5-5.1); SODIUM LEVEL 141 MEQ/L (136-145)
[2016-12-28] MEDS: SENOKOT S TAB PO SCH ×2 (10:01→20:05)
[2016-12-28] MEDS: ENOXAPARIN 40 MG/0.4 ML SYRINGE (J1650) SC SCH (10:02)
[2016-12-28] MEDS: NORCO, ANEXSIA 5/325MG TABLET (HYDROcodone/ACETAMINOPHEN) PO PRN ×3 (13:04→13:37)
--- NOTE | 2016-12-28 13:23 | HPE ---
DATE OF ADMISSION: 12/27/2016 Chief complaint is fever. HISTORY OF PRESENT ILLNESS: Patient is a 56-year-old female, well known to me and just had her perforated appendix removed on 12/25/2016. She had a very high white count and fevers during her hospital stay. However, she had been afebrile for 24 hours and her white count had returned to normal prior to discharge earlier in the day on 12/27/2016. When she got home, she had some difficulty eating with some nausea and started having fever up to 102. So her family called and brought her back to the emergency room. In the emergency room, she had a fever of 101.5. However, her white count was still 11.4 and she denied any other problems of nausea, vomiting or pain. She was admitted over night. This morning, 12/28/2016, she is still doing well. She is continuing to have fevers up to 101, but her white count is continuing to decrease down to 8.4. Currently on intravenous (IV) Zosyn and we will continue to keep her on IV antibiotics until she is afebrile for 24 hours. PAST MEDICAL HISTORY: Negative. SURGICAL HISTORY: Cholecystectomy, hysterectomy, ankle surgery and appendectomy. HOME MEDICATIONS: None. ALLERGIES: ASPIRIN, SULFA, NITROFURANTOIN. SOCIAL HISTORY: Denies drug, alcohol or tobacco abuse. FAMILY HISTORY: Noncontributory. REVIEW OF SYSTEMS: Pertinent positives and negatives as stated in the history of present illness (HPI). PHYSICAL EXAMINATION: Generally, alert and oriented times three. No acute distress. VITAL SIGNS: Stable. Currently, temperature 101, pulse 98, respirations 19, blood pressure 139/61, pulse oximetry 96% on room air. HEENT: Pupils equally round and reactive to light and accommodation. HEART: S1, S2. Regular rate and rhythm. LUNGS: Clear to auscultation bilaterally. ABDOMEN: Soft. Tender to palpation over the incision sites are appropriate. No rebound guarding or rigidity. Incisions are clean, dry and intact. No signs of any infection. EXTREMITIES: No clubbing, cyanosis or edema. LABORATORIES: White count 8.4, hemoglobin 10.5. ASSESSMENT AND PLAN: Patient is a 56-year-old female, recently had a laparoscopic appendectomy with drain placement on 12/25/2016 due to perforated appendix. She is presenting to the emergency room due to fevers upon discharge home. She is continuing to have fevers while she is here. Although, she has no other symptoms other than some dark urine. Her abdomen is soft, nontender. She is tolerating diet, passing gas and having bowel movements, and denies any problems with shortness of breath or breathing. She is at risk for having postoperative abscesses due to the perforated appendix, however it is unlikely to have this close to surgery. We will check a urinalysis (UA) today and continue with regular diet and IV antibiotics. If she is still continuing to have fevers by tomorrow morning, then we will repeat a CT abdomen and pelvis to check for any signs of fluid collections that can be drained.
[2016-12-28 14:00] VITALS: BP 125/58
[2016-12-28 22:00] VITALS: BP 129/71
[2016-12-29] MEDS: PIPERACILLIN/TAZOBACTAM SOD 3.375 GM in D5W 50 ML IV SCH ×2 (00:43→06:01)
[2016-12-29] MEDS: ACETAMINOPHEN TAB 650MG DOSE (2X325MG) PO PRN (00:43)
[2016-12-29 05:57] LABS: MEAN CORPUSCULAR HEMOGLOBIN 29.4 pg (27.0-33.0); MEAN CORPUSCULAR HGB CONC 33.3 g/dl (32.0-36.5); MEAN CORPUSCULAR VOLUME 88.2 fl (80.0-96.0); PLATELET COUNT, AUTOMATED 168 10^3/uL (150-450); RED CELL DISTRIBUTION WIDTH 13.1 % (11.5-14.5); WHITE BLOOD COUNT 6.7 10^3/uL (4.0-10.0)
[2016-12-29 06:00] VITALS: BP 124/64
[2016-12-29 06:08] LABS: ANION GAP 8 MEQ/L (8-16); BLOOD UREA NITROGEN 10 MG/DL (7-18); CALCIUM LEVEL 8.5 MG/DL (8.5-10.1); CARBON DIOXIDE LEVEL 26 MEQ/L (21-32); CHLORIDE LEVEL 110 MEQ/L (98-107); GLOMERULAR FILTRATION RATE > 60.0 (>51); GLUCOSE, FASTING 90 MG/DL (70-105); MAGNESIUM LEVEL 1.9 MG/DL (1.8-2.4); POTASSIUM SERUM 3.2 MEQ/L (3.5-5.1); SODIUM LEVEL 144 MEQ/L (136-145)
[2016-12-29] MEDS ORDERED: POTASSIUM CHLORIDE 10 MEQ SR TABLET PO SCH (09:00)
[2016-12-29] MEDS: SENOKOT S TAB PO SCH (09:10)
[2016-12-29] MEDS: ENOXAPARIN 40 MG/0.4 ML SYRINGE (J1650) SC SCH (09:10)
--- NOTE | 2016-12-30 08:15 | DSES ---
DATE OF ADMISSION: 12/27/2016 DATE OF DISCHARGE: 12/29/2016 ADMISSION DIAGNOSIS: Fevers, status post perforated appendicitis. DISCHARGE DIAGNOSIS: Fevers, status post perforated appendicitis. HOSPITAL COURSE: The patient is a 56-year-old female who presented on 12/25/2016 with acute appendicitis. She underwent surgery and was discharged home on 12/27/2016 after being afebrile for 24 hours and having a white count that returned down to 11. She was discharged home with antibiotics and pain control. She was home less than half a day and she had a fever of 102 at home so she came back to the emergency room in the afternoon of 12/27/2016. In the ER, she had a slight fever of 101 and white count was still only about 11. She had no complaints of any pain or problems with urination. She was admitted to the hospital and placed back on the IV antibiotics for another 24 hours. Yesterday 12/28/2016 at 6:00 in the morning she had another fever so we kept her for another 24 hours. This morning 12/29/2016 she has been afebrile for 24 hours. Her white count is down to 6.7 and she denies any problems with fever, sweats or chills, nausea, vomiting, or pain. She has had a few bowel movements and is tolerating diet and ambulating without any difficulty. The plan is to discharge home again today. She still has antibiotics, pain pills and stool softener from her discharge a couple of days ago. She also has our office number to call with any problems or questions.
== END 2016-12-29 12:12 | disposition home or self-care (01) | DRG 722 ==
LOC: EDBD 17:09 → M ED 17:09 → M ED INP 21:19 → M MSPAV 22:09
PROVIDERS: ADMIT Surgery; ATTEND Surgery
DX: R50.82 Postprocedural fever (principal); Z88.2 Allergy status to sulfonamides; Z90.49 Acquired absence of other specified parts of digestive tract; Z90.710 Acquired absence of both cervix and uterus; Z88.6 Allergy status to analgesic agent; Z88.8 Allergy status to other drugs, medicaments and biological substances

== ENCOUNTER 2017-01-04 18:33 | Inpatient (IN) | payer BC ==
[~2017-01-04] VITALS: Ht 157.5 cm; Wt 83.1 kg
[~2017-01-04 18:33] MED LIST changes: +HYDR-3713 PO
[2017-01-04] MEDS ORDERED: MORPHINE 4 MG/ML 1ML SYRINGE IV ONE (19:45)
[2017-01-04] MEDS ORDERED: ONDANSETRON 4MG/2ML VIAL (J2405) IV ONE (19:45)
[2017-01-04] MEDS ORDERED: NS 1,000 ML IV ONE (19:45)
[2017-01-04 21:04] LABS: BLOOD UREA NITROGEN 14 MG/DL (7-18); CALCIUM LEVEL 8.8 MG/DL (8.5-10.1); CHLORIDE LEVEL 104 MEQ/L (98-107); CREATININE FOR GFR 0.75 MG/DL (0.55-1.02); GLUCOSE, FASTING 105 MG/DL (70-105); POTASSIUM SERUM 4.8 MEQ/L (3.5-5.1); SODIUM LEVEL 134 MEQ/L (136-145)
[2017-01-04 21:48] LABS: ANION GAP 12 MEQ/L (8-16); CARBON DIOXIDE LEVEL 18 MEQ/L (21-32)
[2017-01-04] MEDS ORDERED: ISOVUE-370 76% 100ML VIAL (Q9967) As Ordered ONE (21:50)
[2017-01-04 22:40] LABS: BASO # 0.1 10^3/uL (0.0-0.2); BASO % 0.2 % (0.0-1.0); EOS % 0.1 % (0.0-3.0); IMMATURE GRANULOCYTE % 0.9 % (0-0); LYMPH # 2.1 10^3/uL (1.5-4.5); LYMPH % 8.1 % (24.0-44.0); MEAN CORPUSCULAR HEMOGLOBIN 29.5 pg (27.0-33.0); MEAN CORPUSCULAR HGB CONC 32.4 g/dl (32.0-36.5); MONO # 1.8 10^3/uL (0.0-0.8); MONO % 6.8 % (0.0-5.0); NEUTROPHILS % 83.9 % (36.0-66.0); PLATELET COUNT, AUTOMATED 390 10^3/uL (150-450); RED CELL DISTRIBUTION WIDTH 13.7 % (11.5-14.5); WHITE BLOOD COUNT 26.2 10^3/uL (4.0-10.0)
--- NOTE | 2017-01-04 22:40 | REPUSA ---
CT of the abdomen and pelvis with contrast Clinical statement: Pain. Previous appendectomy. Technique: Multiple axial CT images were obtained from the base of the lungs through the floor of the pelvis utilizing 5 mm axial slices after administration of nonionic intravenous contrast. Coronal an d sagittal reconstructions were also obtained. No comparison is available. Findings: Chest: The visualized lung bases are clear. Abdomen: The liver, spleen, pancreas, kidneys, and adrenal glands are unremarkable. The aorta is with in normal limits. There is no evidence of abdominal lymphadenopathy or ascites. Pelvis: There is a loculated fluid collection at the surgical site in the right lower quadrant within the anterior abdominal wall, measuring 5.4 x 5.1 cm. Several pockets of subcutaneous gas is seen at this site. There is also a loculated gas and fluid collection in the right lower quadrant, measuring 2.4 x 3.8 cm. The urinary bladder is within normal limits. The other pelvic structures appear grossly intact. There is no evidence of pelvic lymphadenopathy or ascites. Bones: There are no suspicious osseous abnormalities seen. Impression: 1. Gas and fluid collection in the subcutaneous tissues at the surgical site in the right lower quadr ant, suspicious for abscess. 2. A intraperitoneal gas and fluid collection is seen in the right lower quadrant near the surgical s ite, suspicious for an abscess as well. Whether this communicates with the superficial fluid collecti on is uncertain. Estefany Glez, was notified of these findings at 10:30 PM on 01/04/2017.
[2017-01-04] MEDS ORDERED: PIPERACILLIN/TAZOBACTAM SOD 3.375 GM in D5W 50 ML IV ONE (23:00)
[2017-01-04] MEDS ORDERED: ONDANSETRON 4MG/2ML VIAL (J2405) IV PRN (23:30)
[2017-01-04] MEDS ORDERED: MORPHINE 2 MG/ML 1ML SYRINGE IV PRN (23:30)
[2017-01-04] MEDS ORDERED: ACETAMINOPHEN 325 MG TAB PO ONE (23:45)
[2017-01-04] MEDS: LR 1,000 ML IV SCH (23:58)
[2017-01-05] MEDS ORDERED: TYLE500T78 PO (00:06)
[2017-01-05] MEDS ORDERED: IBUP200C10 PO (00:06)
[2017-01-05] MEDS: PIPERACILLIN/TAZOBACTAM SOD 3.375 GM in D5W 50 ML IV SCH ×4 (02:24→20:41)
[2017-01-05 07:31] LABS: BASO # 0.1 10^3/uL (0.0-0.2); BASO % 0.2 % (0.0-1.0); EOS # 0.1 10^3/uL (0.0-0.50); EOS % 0.4 % (0.0-3.0); IMMATURE GRANULOCYTE % 0.7 % (0-0); LYMPH # 1.8 10^3/uL (1.5-4.5); LYMPH % 7.7 % (24.0-44.0); MEAN CORPUSCULAR HEMOGLOBIN 29.3 pg (27.0-33.0); MEAN CORPUSCULAR HGB CONC 32.7 g/dl (32.0-36.5); MEAN CORPUSCULAR VOLUME 89.4 fl (80.0-96.0); MONO # 1.8 10^3/uL (0.0-0.8); MONO % 7.8 % (0.0-5.0); NEUTROPHILS # 19.3 10^3/uL (1.8-7.7); NEUTROPHILS % 83.2 % (36.0-66.0); PLATELET COUNT, AUTOMATED 395 10^3/uL (150-450); RED CELL DISTRIBUTION WIDTH 13.7 % (11.5-14.5); WHITE BLOOD COUNT 23.1 10^3/uL (4.0-10.0)
[2017-01-05] MEDS: ERTAPENEM SODIUM 1 GM in NS MINI-BAG PLUS 50 ML IV SCH (07:43)
[2017-01-05 07:45] VITALS: BP 150/66
[2017-01-05] MEDS ORDERED: NORCO, ANEXSIA 5/325MG TABLET (HYDROcodone/ACETAMINOPHEN) PO PRN (09:15)
[2017-01-05] MEDS: PANTOPRAZOLE 40MG INJ (PROTONIX) (C9113) IV SCH ×2 (10:51→22:06)
[2017-01-05] MEDS: KETOROLAC 30 MG/ML VIAL (J1885) IV PRN (10:58)
[2017-01-05] MEDS: SENOKOT S TAB PO SCH ×2 (10:58→20:41)
[2017-01-05] MEDS: HEPARIN SOD (PORCINE) 5000 UNITS/ML VIAL SC SCH ×2 (13:51→22:07)
[2017-01-05] MEDS: LR 1,000 ML IV SCH (13:52)
[2017-01-05] MEDS ORDERED: LIDOCAINE 1% MDV 20ML VIAL As Ordered ONE (15:52)
[2017-01-05 16:50] VITALS: BP 131/63
[2017-01-05] MEDS: ACETAMINOPHEN TAB 650MG DOSE (2X325MG) PO PRN (17:20)
--- NOTE | 2017-01-05 17:49 | REP ---
ULTRASOUND GUIDED DRAINAGE CATHETER PLACEMENT: The procedure was performed by CALEB Hoffman under the direct supervision of Dr. Jalloh. The procedure along with its risks, benefits, and complications were discussed with the patient prior to the examination. Informed consent was obtained both verbally and written. The patient was identified in the ultrasound suite and placed in a supine position. The right abdomen was interrogated with ultrasound. An appropriate site was chosen for needle entry and this area was marked, prepped and draped in the usual sterile fashion. A procedural time-out was performed to ensure that the correct patient, site and procedure were being performed. Local infiltrative anesthesia was achieved using 1% Xylocaine. A small skin henrique was made. An #8-Scottish skater catheter was advanced through the abdominal wall under ultrasound guidance until purulent fluid was aspirated. The needle was removed and the catheter was advanced. Approximately 20 mL of purulent green-brown fluid was aspirated. Ultrasound guidance showed the catheter to be in good position. The catheter was affixed to the patient's skin and a soft dressing was applied to the entry site. The patient tolerated the procedure well and had no immediate complications. IMPRESSION: Uncomplicated right abscess drain placement under ultrasound guidance. Reviewed by CALEB Nelson 01/06/2017 08:36 AEdited and Signed by Mathew Jalloh MD 01/06/2017 07:17 P
[2017-01-05 20:00] VITALS: BP 98/55
[2017-01-06] VITALS: BP 122/60
[2017-01-06] MEDS: LR 1,000 ML IV SCH ×3 (01:51→18:55)
[2017-01-06] MEDS: PIPERACILLIN/TAZOBACTAM SOD 3.375 GM in D5W 50 ML IV SCH ×4 (02:14→20:11)
[2017-01-06] MEDS: ACETAMINOPHEN TAB 650MG DOSE (2X325MG) PO PRN (02:14)
[2017-01-06 04:00] VITALS: BP 100/49
[2017-01-06 07:05] LABS: MEAN CORPUSCULAR HEMOGLOBIN 29.9 pg (27.0-33.0); MEAN CORPUSCULAR HGB CONC 33.6 g/dl (32.0-36.5); PLATELET COUNT, AUTOMATED 393 10^3/uL (150-450); RED CELL DISTRIBUTION WIDTH 13.5 % (11.5-14.5); WHITE BLOOD COUNT 12.8 10^3/uL (4.0-10.0)
[2017-01-06] MEDS: HEPARIN SOD (PORCINE) 5000 UNITS/ML VIAL SC SCH ×3 (07:09→21:53)
[2017-01-06 07:28] LABS: ALBUMIN/GLOBULIN RATIO 0.44 (1.00-1.93); ALKALINE PHOSPHATASE 168 U/L (45-117); ALT/SGPT 62 U/L (12-78); ANION GAP 7 MEQ/L (8-16); AST/SGOT 29 U/L (7-37); BILIRUBIN,TOTAL 0.4 MG/DL (0.2-1.0); BLOOD UREA NITROGEN 16 MG/DL (7-18); CALCIUM LEVEL 8.4 MG/DL (8.5-10.1); CARBON DIOXIDE LEVEL 25 MEQ/L (21-32); CHLORIDE LEVEL 107 MEQ/L (98-107); CREATININE FOR GFR 0.59 MG/DL (0.55-1.02); GLOMERULAR FILTRATION RATE > 60.0 (>51); GLUCOSE, FASTING 103 MG/DL (70-105); MAGNESIUM LEVEL 2.2 MG/DL (1.8-2.4); POTASSIUM SERUM 3.7 MEQ/L (3.5-5.1); SODIUM LEVEL 139 MEQ/L (136-145); TOTAL PROTEIN 6.5 GM/DL (6.4-8.2)
[2017-01-06] MEDS: ERTAPENEM SODIUM 1 GM in NS MINI-BAG PLUS 50 ML IV SCH (07:39)
[2017-01-06] MEDS: KETOROLAC 30 MG/ML VIAL (J1885) IV PRN ×2 (07:40→21:54)
[2017-01-06 08:40] VITALS: BP 118/56
[2017-01-06] MEDS: SENOKOT S TAB PO SCH ×2 (08:40→21:00)
[2017-01-06] MEDS: PANTOPRAZOLE 40MG INJ (PROTONIX) (C9113) IV SCH ×2 (08:40→21:52)
--- NOTE | 2017-01-06 14:36 | IPNPDOC ---
Date Seen The patient was seen on 01/06/17. Progress Note SUBJECTIVE: Patient is a 56-year-old female s/p appendectomy 12/25/16 for perforated appendicitis who presents with postoperative fever and abdominal pain for 2 days duration. Ultrasound guided drainage tube placed yesterday by radiology. Tmax of 102F at 0200 today. Slept well last night. Abdominal pain improved since yesterday. No nausea or vomiting since admission. No diarrhea or constipation. Asking if okay to ambulate around room and halls. Drainage site was examined at bedside and new dressing was placed. The site appeared clean with decreased erythema. Serous discharge was coming from the site but it was not purulent or brown in color. The patient was in acute distress while changing the dressing because of pain around the area. After the site was redressed the patient appeared more comfortable. OBJECTIVE PHYSICAL EXAMINATION: VITAL SIGNS: Please see below. GENERAL: Pleasant middle aged female lying in bed. No acute distress. No diaphoresis. Abdominal: Point tenderness in RLQ to light palpation. Pigtail drain secured in place with reddish/brown fluid in bag. Active serosanguineous drainage from previous drainage tube site in RLQ. decreased erythema around both lesions. no change in pungent smell LABORATORY DATA: Please see below. WBC 23.1 -> 12.8 MICROBIOLOGY: Please see below. Fluid culture and anaerobic culture pending. Blood Cx neg x2 IMAGING: no new imaging ASSESSMENT AND PLAN: This is a 56-year-old female with intraabdominal abscess. PROBLEMS: 1. Intraabdominal abscess: Continue with IV antibiotics, Zosyn and Invanz, plus LR fluid therapy running at 175ml/hr. Awaiting culture results for sensitivity and will de-escalate appropriately. Monitor temperature and WBC. Patient has to be afebrile for 24 hours before possible discharge. Will continue to monitor. Pain controlled with [place] 5/325 and IV Morphine prn. Continue with current pain management. Regular diet. Activity as tolerated. Abscess drainage placed yesterday, will continue with this upon discharge and follow up with Dr. Mark for removal. VS, I&O, 24H, Fishbone Vital Signs/I&O Vital Signs Date Time Temp Pulse Resp B/P (MAP) Pulse Ox O2 Delivery O2 Flow Rate FiO2 01/06/17 12:00 18 01/06/17 04:00 100.6 87 100/49 (66 96 Room Air I&O- Last 24 Hours up to 6 AM 01/07/17 06:00 Intake Total 220 ml Output Total 570 ml Balance -350 ml Laboratory Data 24H LABS Laboratory Tests 2 01/06/17 06:54: Nucleated Red Blood Cells % (auto) 0.0, Anion Gap 7L, Glomerular Filtration Rate > 60.0, Blood Urea Nitrogen 16, Creatinine 0.59, Sodium Level 139, Potassium Level 3.7#, Chloride Level 107, Carbon Dioxide Level 25, Calcium Level 8.4L, Aspartate Amino Transf (AST/SGOT) 29, Alanine Aminotransferase (ALT/ SGPT) 62, Alkaline Phosphatase 168H, Total Bilirubin 0.4, Total Protein 6.5, Albumin 2.0L, Magnesium Level 2.2, Albumin/Globulin Ratio 0.44L CBC/BMP Laboratory Tests 01/06/17 06:54 Red Blood Count 3.35 L, Mean Corpuscular Volume 89.0, Mean Corpuscular Hemoglobin 29.9, Mean Corpuscular Hemoglobin Concent 33.6, Red Cell Distribution Width 13.5, Calcium Level 8.4 L, Aspartate Amino Transf (AST/SGOT) 29, Alanine Aminotransferase (ALT/SGPT) 62, Alkaline Phosphatase 168 H, Total Bilirubin 0.4, Total Protein 6.5, Albumin 2.0 L Microbiology Microbiology 01/04/17 Blood Culture - Preliminary, Resulted No growth after 24 hours . All specim... 01/04/17 Blood Culture - Preliminary, Resulted No growth after 24 hours . All specim... 01/05/17 Anaerobic Culture, Received Pending 01/05/17 Gram Stain - Final, Resulted 01/05/17 Abscess Culture, Resulted Pending GME ATTESTATION GME ATTESTATION My preceptor for this patient encounter was physically present in the building during the encounter and was fully available. As needed, all aspects of the patient interview, examination, medical decision making process, and medical care plan development were reviewed and approved by the preceptor. Preceptor is aware and concurs with the plan as stated in the body of this note and will attest to such by his/her cosignature. CHANDNI PONCE DO Jan 06, 2017 14:36
[2017-01-06 16:15] VITALS: BP 144/56
[2017-01-06 20:00] VITALS: BP 132/74
[2017-01-07] VITALS: BP 128/60
[2017-01-07] MEDS: LR 1,000 ML IV SCH (03:08)
[2017-01-07] MEDS: PIPERACILLIN/TAZOBACTAM SOD 3.375 GM in D5W 50 ML IV SCH (03:08)
[2017-01-07] MEDS: HEPARIN SOD (PORCINE) 5000 UNITS/ML VIAL SC SCH ×3 (06:31→21:04)
[2017-01-07] MEDS: ERTAPENEM SODIUM 1 GM in NS MINI-BAG PLUS 50 ML IV SCH (06:31)
[2017-01-07 06:45] LABS: MEAN CORPUSCULAR HEMOGLOBIN 29.8 pg (27.0-33.0); MEAN CORPUSCULAR HGB CONC 32.7 g/dl (32.0-36.5); PLATELET COUNT, AUTOMATED 376 10^3/uL (150-450); RED CELL DISTRIBUTION WIDTH 13.6 % (11.5-14.5); WHITE BLOOD COUNT 6.8 10^3/uL (4.0-10.0)
[2017-01-07 07:22] LABS: ALBUMIN/GLOBULIN RATIO 0.57 (1.00-1.93); ALKALINE PHOSPHATASE 147 U/L (45-117); ALT/SGPT 51 U/L (12-78); ANION GAP 8 MEQ/L (8-16); AST/SGOT 27 U/L (7-37); BILIRUBIN,TOTAL 0.1 MG/DL (0.2-1.0); BLOOD UREA NITROGEN 21 MG/DL (7-18); CALCIUM LEVEL 8.3 MG/DL (8.5-10.1); CARBON DIOXIDE LEVEL 25 MEQ/L (21-32); CHLORIDE LEVEL 112 MEQ/L (98-107); CREATININE FOR GFR 0.46 MG/DL (0.55-1.02); GLOMERULAR FILTRATION RATE > 60.0 (>51); GLUCOSE, FASTING 121 MG/DL (70-105); MAGNESIUM LEVEL 1.8 MG/DL (1.8-2.4); POTASSIUM SERUM 3.7 MEQ/L (3.5-5.1); SODIUM LEVEL 145 MEQ/L (136-145); TOTAL PROTEIN 5.5 GM/DL (6.4-8.2)
[2017-01-07 08:00] VITALS: BP 136/73
[2017-01-07] MEDS: PANTOPRAZOLE 40MG INJ (PROTONIX) (C9113) IV SCH ×2 (08:52→21:04)
[2017-01-07] MEDS: SENOKOT S TAB PO SCH ×2 (08:52→21:04)
[2017-01-07] MEDS ORDERED: SLF 3 ML SYR IV PRN (13:00)
[2017-01-07] MEDS: SLF 3 ML SYR IV SCH ×2 (13:55→21:04)
[2017-01-07 16:00] VITALS: BP 130/77
[2017-01-07] MEDS: KETOROLAC 30 MG/ML VIAL (J1885) IV PRN (21:11)
[2017-01-08 00:33] VITALS: BP 136/70
[2017-01-08] MEDS: HEPARIN SOD (PORCINE) 5000 UNITS/ML VIAL SC SCH (06:02)
[2017-01-08] MEDS: SLF 3 ML SYR IV SCH (06:02)
[2017-01-08] MEDS: ERTAPENEM SODIUM 1 GM in NS MINI-BAG PLUS 50 ML IV SCH (06:03)
[2017-01-08 06:53] LABS: MEAN CORPUSCULAR HEMOGLOBIN 29.4 pg (27.0-33.0); MEAN CORPUSCULAR HGB CONC 32.6 g/dl (32.0-36.5); MEAN CORPUSCULAR VOLUME 90.1 fl (80.0-96.0); PLATELET COUNT, AUTOMATED 429 10^3/uL (150-450); RED CELL DISTRIBUTION WIDTH 13.4 % (11.5-14.5); WHITE BLOOD COUNT 7.8 10^3/uL (4.0-10.0)
[2017-01-08 07:19] LABS: ALBUMIN/GLOBULIN RATIO 0.57 (1.00-1.93); ALKALINE PHOSPHATASE 132 U/L (45-117); ALT/SGPT 47 U/L (12-78); ANION GAP 9 MEQ/L (8-16); AST/SGOT 24 U/L (7-37); BILIRUBIN,TOTAL 0.2 MG/DL (0.2-1.0); BLOOD UREA NITROGEN 19 MG/DL (7-18); CARBON DIOXIDE LEVEL 24 MEQ/L (21-32); CHLORIDE LEVEL 110 MEQ/L (98-107); CREATININE FOR GFR 0.47 MG/DL (0.55-1.02); GLOMERULAR FILTRATION RATE > 60.0 (>51); GLUCOSE, FASTING 81 MG/DL (70-105); MAGNESIUM LEVEL 1.9 MG/DL (1.8-2.4); POTASSIUM SERUM 4.1 MEQ/L (3.5-5.1); SODIUM LEVEL 143 MEQ/L (136-145); TOTAL PROTEIN 5.5 GM/DL (6.4-8.2)
[2017-01-08 08:00] VITALS: BP 135/80
[2017-01-08] MEDS: SENOKOT S TAB PO SCH (08:37)
[2017-01-08] MEDS: PANTOPRAZOLE 40MG INJ (PROTONIX) (C9113) IV SCH (08:37)
[2017-01-08] MEDS ORDERED: LEVA1TAB2 PO (10:35)
--- NOTE | 2017-01-08 10:38 | IPNPDOC ---
Subjective General Date/Time Seen The patient was seen on 01/08/17 at 10:35. Subject Chief Complaint/History The patient is a 56-year-old female admitted with a reason for visit of Intra Abdominal Abscess. Afebrile x 24 hours, feels improved. Minimal tenderness at drain site. Current Medications Current Medications Current Medications Acetaminophen (Tylenol Tab) 650 mg Q4HP PRN PO MILD PAIN or TEMP > 101 Last administered on 01/06/17 02:14; Start 01/05/17 at 09:15; Stop 02/04/17 at 09:14 Acetaminophen/ Hydrocodone Bitart ([place], Anexs[place] 5/325) 2 tab Q6HP PRN PO SEVERE PAIN (PS 8-10); Start 01/05/17 at 09:15; Stop 01/12/17 at 09:14 Ertapenem 1 gm/ Sodium Chloride 50 ml @ 100 mls/hr Q24H IV Last administered on 01/08/17 06:03; Start 01/05/17 at 07:00; Stop 01/12/17 at 06:59 Heparin Sodium (Porcine) (Heparin) 5,000 units Q8H SC Last administered on 01/08 06:02; Start 01/05/17 at 14:00; Stop 01/10/17 at 13:59 Home Med (Med Rec Complete!) ASDIRECTED XX ; Start 01/05/17 at 00:15; Stop 01/05/17 at 00:15; Status DC Ketorolac Tromethamine (ToRADol) 30 mg Q6HP PRN IV MILD/MODERATE PAIN (PS 1-7) Last administered on 01/07/17 21:11; Start 01/05/17 at 09:15; Stop 01/10/17 at 09:14 Lactated Ringer's 1,000 ml @ 125 mls/hr Q8H IV Last administered on 01/06/17 01:51; Start 01/04/17 at 23:15; Stop 01/06/17 at 03:41; Status DC Lactated Ringer's 1,000 ml @ 175 mls/hr Q5H43M IV Last administered on 03:08; Start 01/06/17 at 03:45; Stop 01/07/17 at 07:41; Status DC Morphine Sulfate (Morphine Sulfate Inj) 2 mg Q2HP PRN IV PAIN Last administered on 01/05/17 06:20; Start 01/04/17 at 23:30; Stop 01/11/17 at 23: 29 Ondansetron HCl (ZOFRAN INJection) 4 mg Q4HP PRN IV NAUSEA; Start 01/04/17 at 23:30; Stop 02/03/17 at 23:29 Pantoprazole Sodium (Protonix) 40 mg BID IV Last administered on 01/08/17 08: 37; Start 01/05/17 at 09:00; Stop 02/04/17 at 08:59 Piperacillin Sod/ Tazobactam Sod 3.375 gm/Dextrose 50 ml @ 50 mls/hr Q6H IV Last administered on 01/07/17 03:08; Start 01/05/17 at 02:00; Stop 01/07/17 at 07:24; Status DC Senna/Docusate Sodium (Senokot S) 1 tab BID PO Last administered on 01/06/17 08:40; Start 01/05/17 at 09:00; Stop 02/04/17 at 08:59 Sodium Chloride (Saline Lock Flush) 2 ml ASDIRECTED PRN IV SEE LABEL COMMENTS; Start 01/07/17 at 13:00; Stop 02/06/17 at 12:59 Sodium Chloride (Saline Lock Flush) 2 ml SLF IV Last administered on 01/08/17 06:02; Start 01/07/17 at 14:00; Stop 02/06/17 at 13:59 Allergies Coded Allergies: Nitrofurantoin (Verified Allergy, Mild, NAUSEA , 09/30/16) Sulfamethoxazole w/Trimethoprim (Verified Adverse Reaction, Intermediate, nausea, 01/04/17) Aspirin (Verified Adverse Reaction, Mild, NAUSEA, 06/12/12) Sulfa Antibiotics (Verified Adverse Reaction, Unknown, NAUSEA/VOMITING, ) Objective Physical Examination Examination GENERAL APPEARANCE:comfortable. SKIN: Warm and moist. HEENT: Normocephalic, atraumatic. [place] palpebral conjunctiva, anicteric sclerae. Lips and mucosa appear moist. NECK: Supple, no thyromegaly. No obvious jugular venous distention. LUNGS: Clear to auscultation bilaterally. No wheezing appreciated. HEART: No chest wall abnormalities. Regular rate and rhythm with no murmurs appreciated. ABDOMEN: Abdomen is round, soft, drain small amount of mixed clear fluid and purulent material. Drain site clean. Nontender on palpation. EXTREMITIES: no edema Vital Signs Vital Signs Date Time Temp Pulse Resp B/P (MAP) Pulse Ox O2 Delivery O2 Flow Rate FiO2 01/08/17 08:00 98.1 72 18 135/80 (98) 97 Room Air I&Os I&O- Last 24 Hours up to 6 AM 01/09/17 06:00 Intake Total 240 ml Output Total 150 ml Balance 90 ml Laboratory Data Labs 24H Laboratory Tests 2 01/08/17 06:24: Nucleated Red Blood Cells % (auto) 0.0, Anion Gap 9, Glomerular Filtration Rate > 60.0, Blood Urea Nitrogen 19H, Creatinine 0.47L, Sodium Level 143, Potassium Level 4.1, Chloride Level 110H, Carbon Dioxide Level 24, Calcium Level 8.0L, Aspartate Amino Transf (AST/SGOT) 24, Alanine Aminotransferase (ALT/SGPT) 47, Alkaline Phosphatase 132H, Total Bilirubin 0.2#, Total Protein 5.5L, Albumin 2.0L, Magnesium Level 1.9, C-Reactive Protein, Quantitative 5.77H, Albumin/ Globulin Ratio 0.57L CBC/BMP Laboratory Tests 01/08/17 06:24 Red Blood Count 3.13 L, Mean Corpuscular Volume 90.1, Mean Corpuscular Hemoglobin 29.4, Mean Corpuscular Hemoglobin Concent 32.6, Red Cell Distribution Width 13.4, Calcium Level 8.0 L, Aspartate Amino Transf (AST/SGOT) 24, Alanine Aminotransferase (ALT/SGPT) 47, Alkaline Phosphatase 132 H, Total Bilirubin 0.2 #, Total Protein 5.5 L, Albumin 2.0 L Microbiology Microbiology 01/04/17 Blood Culture - Preliminary, Resulted No Growth after 72 hours. All specime... 01/04/17 Blood Culture - Preliminary, Resulted No Growth after 72 hours. All specime... 01/05/17 Anaerobic Culture, Received Pending 01/05/17 Gram Stain - Final, Complete 01/05/17 Abscess Culture - Final, Complete Escherichia Coli Proteus Mirabilis Strep Anginosus (S.milleri) Impression Intraabdominal abscess Final cultures growth of multiple organisms sensitive to levaquin She will continue on levaquin x 14 days D/C home with drain and follow up with Dr. Mark as originally scheduled on the Jan. Plan / VTE VTE Prophylaxis Ordered?: Yes MARIELY TURPIN MD Jan 08, 2017 10:38
--- NOTE | 2017-01-11 17:31 | DSES ---
DATE OF ADMISSION: 01/04/2017 DATE OF DISCHARGE: 01/08/2017 ADMISSION DIAGNOSIS: Intra-abdominal abscess status post perforated appendectomy. DISCHARGE DIAGNOSIS: Intra-abdominal abscess status post perforated appendectomy. HOSPITAL COURSE: The patient is 56-year-old female who presented on January 04 with fevers and abdominal pain about a week after having surgery for a perforated appendix. She came into the emergency room (ER) and had an elevated white count of 26.[address] as a CT that confirmed that there was an intra-abdominal abscess communicating into the abdominal wall. She was brought in overnight and placed on antibiotics, intravenous (IV) fluids. White count dropped a little bit down to 23.1. On January 05 she had an ultrasound-guided drain placed by the radiology department, which pulled out a lot of purulent material. Cultures returned on that as Escherichia (E) coli, Proteus mirabilis, and Streptococcus anginosis. Once the drain was placed and she was continued on antibiotics, her white count of dramatically improved the next day from 23 down to 12.8 down to 6.8 the day after that, Her pain was improving. The drain was continuing to work. She was tolerating diet. No fevers, chills. No nausea or vomiting, and she was having bowel movements. Because of this and her improvement, she was discharged home on January 08 with a drain in place, and she will continue with oral antibiotics at home and followup me in the office in a week to get the drain removed.
== END 2017-01-08 11:35 | disposition home or self-care (01) | DRG 721 ==
LOC: M ED 18:33 → UNDOADMIN 22:57 → M ED INP 22:57 → M PED 01-05 00:34 → UNDODISIN 01-08 11:35
PROVIDERS: ADMIT Surgery; ATTEND Surgery
PROC: 0W9F30Z Drainage of Abdominal Wall with Drainage Device, Percutaneous Approach (ICD-10-PCS; principal; 2017-01-05)
DX: T81.4XXA Infection following a procedure, initial encounter (principal); B96.4 Proteus (mirabilis) (morganii) as the cause of diseases classified elsewhere; B96.20 Unspecified Escherichia coli [E. coli] as the cause of diseases classified elsewhere; B95.0 Streptococcus, group A, as the cause of diseases classified elsewhere; Z88.6 Allergy status to analgesic agent; Z88.2 Allergy status to sulfonamides; Z88.8 Allergy status to other drugs, medicaments and biological substances; Z79.899 Other long term (current) drug therapy

== ENCOUNTER → 2017-02-04 | Outpatient (CLI) | payer BC ==
[~2017-02-04] MED LIST changes: +GASTROGRAFIN SOLUTION 30ML (Q9963) As Ordered ONE; +IBUP200C10 PO; +ISOVUE-370 76% 100ML VIAL (Q9967) As Ordered ONE; +LEVA1TAB2 PO; +TYLE500T78 PO
--- NOTE | 2017-02-04 14:40 | REP ---
Clinical: Previous complicated appendicitis with multiple abscesses. Technique: Axial contrast enhanced images from the lung bases to the pubic symphysis using oral (per protocol) and 100 ml Isovue 370 intravenous contrast material with coronal and sagittal re-formations. Comparison: 01/04/2017. Findings: The patient is noted to be status post appendectomy and abscess drainage. The right lower quadrant now demonstrates minimal normal postsurgical changes along with small amount of granulation tissue in the adjacent subcutaneous tissues at the site of previous abscesses. No residual abscess is identified and no new fluid collection, free fluid or significant inflammatory stranding is appreciated. The enteric system is without obstruction or acute inflammatory process. Liver, spleen, pancreas, bilateral adrenal glands and kidneys are normal. The patient is status post cholecystectomy. The enteric system is detailed above. Pelvis demonstrates normal bladder and evidence for prior hysterectomy. No ascites. No adenopathy. No free air. Vasculature is within normal limits and without aortic aneurysm or dissection. Musculoskeletal structures are within normal limits. Lung bases are clear. Impression: 1. Essentially complete resolution to the previously noted complicated appendicitis. Specifically, no residual abscess is identified and no new inflammatory stranding or fluid/fluid collection is appreciated. 2. No acute abdominopelvic pathology appreciated. Signed by Kit Pedraza MD 02/04/2017 02:31 P
== END ==
LOC: M RAD 12:34
PROVIDERS: ATTEND Surgery
DX: L02.211 Cutaneous abscess of abdominal wall (principal)

== ENCOUNTER → 2017-09-21 | Outpatient (REF) | payer BC ==
[2017-09-21 21:42] LABS: APPEARANCE, URINE CLOUDY (CLEAR); BACTERIA, URINE AUTO NEGATIVE (NEGATIVE); BILIRUBIN, URINE AUTO NEGATIVE (NEGATIVE); BLOOD, URINE BLOOD NEGATIVE (NEGATIVE); COLOR, URINE YELLOW (YELLOW); GLUCOSE, URINE (UA) AUTO NEGATIVE (NEGATIVE); KETONE, URINE AUTO NEGATIVE (NEGATIVE); LEUKOCYTE ESTERASE, URINE AUTO 1+ (NEGATIVE); MUCUS, URINE SMALL (NEGATIVE); NITRITE, URINE AUTO NEGATIVE (NEGATIVE); PROTEIN, URINE AUTO NEGATIVE (NEGATIVE); RBC, URINE AUTO 4 /HPF (0-3); SPECIFIC GRAVITY URINE AUTO 1.023 (1.002-1.035); SQUAMOUS EPITHELIAL CELL UR AU 8 /HPF (0-6); UROBILINOGEN, URINE AUTO 0.2 mg/dL (0.0-2.0); WBC, URINE AUTO 3 /HPF (0-3)
== END ==
LOC: M LAB REF 10:58
DX: N39.0 Urinary tract infection, site not specified (principal)

== ENCOUNTER → 2017-12-23 | Outpatient (REF) | payer BC ==
[2017-12-23 12:58] LABS: APPEARANCE, URINE CLEAR (CLEAR); BACTERIA, URINE AUTO NEGATIVE (NEGATIVE); BILIRUBIN, URINE AUTO NEGATIVE (NEGATIVE); BLOOD, URINE BLOOD 1+ (NEGATIVE); COLOR, URINE YELLOW (YELLOW); GLUCOSE, URINE (UA) AUTO NEGATIVE (NEGATIVE); KETONE, URINE AUTO NEGATIVE (NEGATIVE); LEUKOCYTE ESTERASE, URINE AUTO NEGATIVE (NEGATIVE); NITRITE, URINE AUTO NEGATIVE (NEGATIVE); PROTEIN, URINE AUTO NEGATIVE (NEGATIVE); RBC, URINE AUTO 2 /HPF (0-3); SQUAMOUS EPITHELIAL CELL UR AU 0 /HPF (0-6); UROBILINOGEN, URINE AUTO 0.2 mg/dL (0.0-2.0); WBC, URINE AUTO 2 /HPF (0-3)
== END ==
LOC: M LAB REF 12:40
DX: N39.0 Urinary tract infection, site not specified (principal)
CPT/HCPCS: 81001

== ENCOUNTER → 2018-05-30 | Outpatient (REF) | payer BC ==
[~2018-05-30] MED LIST changes: -GASTROGRAFIN SOLUTION 30ML (Q9963) As Ordered ONE; -IBUP200C10 PO; +IBUP200C25 PO; -ISOVUE-370 76% 100ML VIAL (Q9967) As Ordered ONE
[2018-05-30 18:56] LABS: INFLUENZA A AMPLIFICATION POSITIVE (NEGATIVE); INFLUENZA B AMPLIFICATION NEGATIVE (NEGATIVE)
[2018-05-30 19:45] LABS: APPEARANCE, URINE CLEAR (CLEAR); BACTERIA, URINE AUTO NEGATIVE (NEGATIVE); BILIRUBIN, URINE AUTO NEGATIVE (NEGATIVE); BLOOD, URINE BLOOD NEGATIVE (NEGATIVE); COLOR, URINE YELLOW (YELLOW); GLUCOSE, URINE (UA) AUTO NEGATIVE (NEGATIVE); KETONE, URINE AUTO NEGATIVE (NEGATIVE); LEUKOCYTE ESTERASE, URINE AUTO NEGATIVE (NEGATIVE); MUCUS, URINE SMALL (NEGATIVE); NITRITE, URINE AUTO NEGATIVE (NEGATIVE); PROTEIN, URINE AUTO NEGATIVE (NEGATIVE); RBC, URINE AUTO 3 /HPF (0-3); SPECIFIC GRAVITY URINE AUTO 1.025 (1.002-1.035); SQUAMOUS EPITHELIAL CELL UR AU 2 /HPF (0-6); UROBILINOGEN, URINE AUTO 0.2 mg/dL (0.0-2.0); WBC, URINE AUTO 2 /HPF (0-3)
== END ==
LOC: M LAB REF 17:58
PROVIDERS: ATTEND Physician Assistant Medical
DX: N39.0 Urinary tract infection, site not specified (principal); J11.1 Influenza due to unidentified influenza virus with other respiratory manifestations

== ENCOUNTER → 2018-10-05 | Outpatient (REF) | payer BC ==
[~2018-10-05] MED LIST changes: +HYDR-3715 PO; -MAGN1TAB25 PO; +MAGN1TAB26 PO; -NORCOTAB PO; -SENN1TAB2 PO; +SENN1TAB40 PO
[2018-10-05 21:51] LABS: APPEARANCE, URINE CLOUDY (CLEAR); BACTERIA, URINE AUTO NEGATIVE (NEGATIVE); BILIRUBIN, URINE AUTO NEGATIVE (NEGATIVE); BLOOD, URINE BLOOD 1+ (NEGATIVE); CALCIUM OXALATE CRYSTALS LARGE; COLOR, URINE YELLOW (YELLOW); GLUCOSE, URINE (UA) AUTO NEGATIVE (NEGATIVE); KETONE, URINE AUTO NEGATIVE (NEGATIVE); LEUKOCYTE ESTERASE, URINE AUTO NEGATIVE (NEGATIVE); MUCUS, URINE SMALL (NEGATIVE); NITRITE, URINE AUTO NEGATIVE (NEGATIVE); PROTEIN, URINE AUTO NEGATIVE (NEGATIVE); RBC, URINE AUTO 6 /HPF (0-3); SPECIFIC GRAVITY URINE AUTO 1.027 (1.002-1.035); SQUAMOUS EPITHELIAL CELL UR AU 1 /HPF (0-6); UROBILINOGEN, URINE AUTO 0.2 mg/dL (0.0-2.0); WBC, URINE AUTO 1 /HPF (0-3)
== END ==
LOC: M LAB REF 11:07
PROVIDERS: ATTEND Physician Assistant
DX: N39.0 Urinary tract infection, site not specified (principal)

== ENCOUNTER → 2019-04-12 | Outpatient (REF) | payer BC ==
[~2019-04-12] MED LIST changes: +SENN-53 PO; -SENN1TAB40 PO
[2019-04-12 20:01] LABS: INFLUENZA A AMPLIFICATION NEGATIVE (NEGATIVE); INFLUENZA B AMPLIFICATION POSITIVE (NEGATIVE)
== END ==
LOC: M LAB REF 18:55
PROVIDERS: ATTEND Physician Assistant
DX: J11.1 Influenza due to unidentified influenza virus with other respiratory manifestations (principal)

== ENCOUNTER → 2020-07-22 | Outpatient (CLI) | payer BC ==
--- NOTE | 2020-07-22 11:01 | REPMRS ---
Patient History The patient states she had a clinical breast exam in June 2020. Family history of pancreatic cancer at age 67 in brother, breast cancer in sister. No breast complaints today Patient signed the MRS sheet No covid vaccine Best views possible on MLO's, unable to get patient to relax and get more muscle on views Priors on PACS Patient Identification Verified Digital Woman Screen Mammo: July 22, 2020 - Exam #: [id number] Bilateral CC and MLO view(s) were taken. Technologist: Elizabeth Espino, Technologist Prior study comparison: June 13, 2015, digital woman screen mammo performed at [facility]. May 13, 2011, digital woman screen mammo performed at [facility]. April 24, 2010, bilateral bilat screen digital mammo performed at [facility]. FINDINGS: There are scattered fibroglandular densities. The Volpara volumetric breast density category is:B. There has been no change in the appearance of the mammogram from the prior studies. There is a mild amount of scattered fibroglandular density which is fairly symmetric. There is no interval development of dominant mass, architectural distortion, or grouped microcalcification suggestive of malignancy. 3-D tomosynthesis shows no additional findings. Assessment: BI-RADS/ACR category 1 mammogram. Negative Mammogram. Recommendation Routine screening mammogram of both breasts in 1 year (for women over age 40). This patient's [facility] Lifetime Breast Cancer Risk is estimated at 10.2 %. This mammogram was interpreted with the aid of an FDA-approved computer-aided dectection system. Electronically Signed By: Alberto Patel MD 07/22/20 [id number]
== END ==
LOC: M WHC 07:48
PROVIDERS: ATTEND Obstetrics & Gynecology
DX: Z12.31 Encounter for screening mammogram for malignant neoplasm of breast (principal); Z80.8 Family history of malignant neoplasm of other organs or systems; Z80.3 Family history of malignant neoplasm of breast

== ENCOUNTER 2020-12-22 06:10 | Emergency (ER) | payer OTHER, BC ==
[~2020-12-22] VITALS: Ht 157.5 cm; Wt 72.1 kg
--- OUTSIDE RECORDS SUMMARY | 2020-12-22 06:19 | CCD ---
Author Author [facility] Organization [facility] Address Unknown Phone Unavailable Care Team Providers Care Flanging Roll Operator Name Role Phone Iqbal, Emmie FINANCE AND ADMINISTRATION MANAGER Unavailable Unavailable Iqbal, Emmie FINANCE AND ADMINISTRATION MANAGER Unavailable Unavailable Iqbal, Emmie FINANCE AND ADMINISTRATION MANAGER Unavailable Unavailable Iqbal, Emmie FINANCE AND ADMINISTRATION MANAGER Unavailable Unavailable Iqbal, Emmie FINANCE AND ADMINISTRATION MANAGER Unavailable Unavailable Iqbal, Emmie FINANCE AND ADMINISTRATION MANAGER Unavailable Unavailable Iqbal, Emmie FINANCE AND ADMINISTRATION MANAGER Unavailable Unavailable Iqbal, Emmie FINANCE AND ADMINISTRATION MANAGER Unavailable Unavailable Iqbal, Emmie FINANCE AND ADMINISTRATION MANAGER Unavailable Unavailable Iqbal, Emmie FINANCE AND ADMINISTRATION MANAGER Unavailable Unavailable Iqbal, Emmie FINANCE AND ADMINISTRATION MANAGER Unavailable Unavailable Iqbal, Emmie FINANCE AND ADMINISTRATION MANAGER Unavailable Unavailable Iqbal, Emmie FINANCE AND ADMINISTRATION MANAGER Unavailable Unavailable GUTIERREZ, L SARAHI LOPEZ Unavailable Unavailable GUTIERREZ, L SARAHI LOPEZ Unavailable Unavailable GUTIERREZ, L SARAHI LOPEZ Unavailable Unavailable GUTIERREZ, L SARAHI LOPEZ Unavailable Unavailable GUTIERREZ, L SARAHI LOPEZ Unavailable Unavailable GUTIERREZ, L SARAHI LOPEZ Unavailable Unavailable GUTIERREZ, L SARAHI LOPEZ Unavailable Unavailable GUTIERREZ, L SARAHI LOPEZ Unavailable Unavailable GUTIERREZ, L SAARHI LOPEZ Unavailable Unavailable GUTIERREZ, L SARAHI LOPEZ Unavailable Unavailable GUTIERREZ, L SARAHI LOPEZ Unavailable Unavailable GUTIERREZ, L SARAHI LOPEZ Unavailable Unavailable GUTIERREZ, L SARAHI LOPEZ Unavailable Unavailable GUTIERREZ, L SARAHI LOPEZ Unavailable Unavailable GUTIERREZ, L SARAHI LOPEZ Unavailable Unavailable GUTIERREZ, Luna MCCLAIN MD Unavailable Unavailable GUTIERREZ, L SARAHI LOPEZ Unavailable Unavailable GUTIERREZ, L SARAHI LOPEZ Unavailable Unavailable GUTIERREZ, L SARAHI LOPEZ Unavailable Unavailable GUTIERREZ, L SARAHI LOPEZ Unavailable Unavailable GUTIERREZ, L SARAHI LOPEZ Unavailable Unavailable GUTIERREZ, L SARAHI LOPEZ Unavailable Unavailable GUTIERREZ, L SARAHI LOPEZ Unavailable Unavailable GUTIERREZ, L SARAHI LOPEZ Unavailable Unavailable GUTIERREZ, L SARAHI LOPEZ Unavailable Unavailable GUTIERREZ, L SARAHI LOPEZ Unavailable Unavailable GUTIERREZ, L SARAHI LOPEZ Unavailable Unavailable GUTIERREZ, L SARAHI LOPEZ Unavailable Unavailable GUTIERREZ, L SARAHI LOPEZ Unavailable Unavailable GUTIERREZ, L SARAHI LOPEZ Unavailable Unavailable GUTIERREZ, L SARAHI LOPEZ Unavailable Unavailable GUTIERREZ, L SARAHI LOPEZ Unavailable Unavailable GUTIERREZ, L SARAHI LOPEZ Unavailable Unavailable GUTIERREZ, L SARAHI LOPEZ Unavailable Unavailable GUTIERREZ, L SARAHI LOPEZ Unavailable Unavailable GUTIERREZ, L SARAHI LOPEZ Unavailable Unavailable GUTIERREZ, L SARAHI LOPEZ Unavailable Unavailable GUTIERREZ, L SARAHI LOPEZ Unavailable Unavailable GUTIERREZ, L SARAHI LOPEZ Unavailable Unavailable GUTIERREZ, L SARAHI LOPEZ Unavailable Unavailable GUTIERREZ, L SARAHI LOPEZ Unavailable Unavailable GUTIERREZ, L SARAHI LOPEZ Unavailable Unavailable GUTIERREZ, L SARAHI LOPEZ Unavailable Unavailable GUTIERREZ, L SARAHI LOPEZ Unavailable Unavailable GUTIERREZ, L SARAHI LOPEZ Unavailable Unavailable TONTARSKI, G BRITTANY PA Unavailable Unavailable TONTARSKI, G BRITTANY PA Unavailable Unavailable TONTARSKI, G BRITTANY PA Unavailable Unavailable TONTARSKI, G BRITTANY PA Unavailable Unavailable TONTARSKI, G BRITTANY PA Unavailable Unavailable TONTARSKI, G BRITTANY PA Unavailable Unavailable TONTARSKI, G BRITTANY PA Unavailable Unavailable TONTARSKI, G BRITTANY PA Unavailable Unavailable TONTARSKI, G BRITTANY PA Unavailable Unavailable TONTARSKI, G BRITTANY PA Unavailable Unavailable TONTARSKI, G BRITTANY PA Unavailable Unavailable TONTARSKI, G BRITTANY PA Unavailable Unavailable TONTARSKI, G BRITTANY PA Unavailable Unavailable TONTARSKI, G BRITTANY PA Unavailable Unavailable TONTARSKI, G BRITTANY PA Unavailable Unavailable TONTARSKI, G BRITTANY PA Unavailable Unavailable TONTARSKI, G BRITTANY PA Unavailable Unavailable TONTARSKI, G BRITTANY PA Unavailable Unavailable TONTARSKI, G BRITTANY PA Unavailable Unavailable TONTARSKI, G BRITTANY PA Unavailable Unavailable TONTARSKI, G BRITTANY PA Unavailable Unavailable TONTARSKI, G BRITTANY PA Unavailable Unavailable TONTARSKI, G BRITTANY PA Unavailable Unavailable TONTARSKI, G BRITTANY PA Unavailable Unavailable TONTARSKI, G BRITTANY PA Unavailable Unavailable TONTARSKI, G BRITTANY PA Unavailable Unavailable TONTARSKI, G BRITTANY PA Unavailable Unavailable TONTARSKI, G BRITTANY PA Unavailable Unavailable TONTARSKI, G BRITTANY PA Unavailable Unavailable TONTARSKI, G BRITTANY PA Unavailable Unavailable TONTARSKI, G BRITTANY PA Unavailable Unavailable TONTARSKI, G BRITTANY PA Unavailable Unavailable TONTARSKI, G BRITTANY PA Unavailable Unavailable TONTARSKI, G BRITTANY PA Unavailable Unavailable TONTARSKI, G BRITTANY PA Unavailable Unavailable TONTARSKI, G BRITTANY PA Unavailable Unavailable TONTARSKI, G BRITTANY PA Unavailable Unavailable TONTARSKI, G BRITTANY PA Unavailable Unavailable TONTARSKI, G BRITTANY PA Unavailable Unavailable TONTARSKI, G BRITTANY PA Unavailable Unavailable TONTARSKI, G BRITTANY PA Unavailable Unavailable TONTARSKI, G BRITTANY PA Unavailable Unavailable TONTARSKI, G BRITTANY PA Unavailable Unavailable TONTARSKI, G BRITTANY PA Unavailable Unavailable TONTARSKI, G BRITTANY PA Unavailable Unavailable TONTARSKI, G BRITTANY PA Unavailable Unavailable TONTARSKI, G BRITTANY PA Unavailable Unavailable Re-disclosure Warning The records that you are about to access may contain information from federally-assisted alcohol or drug abuse programs. If such information is present, then the following federally mandated warning applies: This information has been disclosed to you from records protected by federal confidentiality rules (42 CFR part 2). The federal rules prohibit you from making any further disclosure of this information unless further disclosure is expressly permitted by the written consent of the person to whom it pertains or as otherwise permitted by 42 CFR part 2. A general authorization for the release of medical or other information is NOT sufficient for this purpose. The Federal rules restrict any use of the information to criminally investigate or prosecute any alcohol or drug abuse patient.The records that you are about to access may contain highly sensitive health information, the redisclosure of which is protected by Article 27-F of the [facility] Public Health law. If you continue you may have access to information: Regarding HIV / AIDS; Provided by facilities licensed or operated by the [facility] Office of Mental Health; or Provided by the [facility] Office for People With Developmental Disabilities. If such information is present, then the following [facility] mandated warning applies: This information has been disclosed to you from confidential records which are protected by state law. State law prohibits you from making any further disclosure of this information without the specific written consent of the person to whom it pertains, or as otherwise permitted by law. Any unauthorized further disclosure in violation of state law may result in a fine or halfway sentence or both. A general authorization for the release of medical or other information is NOT sufficient authorization for further disc losure. Allergies and Adverse Reactions Type Description Substance Reaction Status Data Source(s ) Drug Allergy Drug Allergy NKDA [facility] ([facility]) Family History Family Member Name Family Member Gender Family Member Status Date o f Status Description Data Source(s) Unknown Unknown Problem [facility] ([facility]) Unknown Male Problem [facility] ([facility]) Unknown Female Problem [facility] ([facility]) Encounters Encounter Providers Location Date Indications Data Source(s ) Outpatient Attender: BRITTANY [facility] 09/24/2020 08:45:00 AM EDT [facility] (Timmy Foy MD) 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 Medications Medication Brand Name Start Date Product Form Dose Route Admi nistrative Instructions Pharmacy Instructions Status Indications Reaction Description Data Source(s) 50 mcg/actuation 06/25/2020 12:00:00 AM EDT spray,suspension 16 SPRAY TWO SPRAYS IN EACH NOSTRIL EVERY DAY SPRAY TWO SPRAYS IN EACH NOSTRIL EVERY DAY SOLD: 06/27/2020 [facility] montelukast 10 MG Oral Tablet MONTELUKAST SODIUM 06/25/2020 12:0 0:00 AM EDT tablet 90 TAKE ONE TABLET BY MOUTH EVERY D AY TAKE ONE TABLET BY MOUTH EVERY DAY SOLD: 06/27/2020 [facility] 50 mg 06/25/2020 12:00:00 AM EDT tablet 90 TAKE ONE TABLET BY MOUTH EVERY DAY TAKE ONE TABLET BY MOUTH EVERY DAY SOLD: 06/27/2020 [facility] 300 mg 03/27/2020 12:00:00 AM EST capsule 20 TAKE ONE CAPSULE BY MOUTH TWICE A DAY TAKE ONE CAPSULE BY MOUTH TWICE A DAY SOLD: 03/27/2020 [facility] montelukast 10 MG Oral Tablet MONTELUKAST SODIUM 03/27/2020 12:0 0:00 AM EST tablet 30 TAKE ONE TABLET BY MOUTH EVERY D AY TAKE ONE TABLET BY MOUTH EVERY DAY SOLD: 03/27/2020 [facility] 50 mcg/actuation 03/27/2020 12:00:00 AM EST spray,suspension 16 SPRAY TWO SPRAYS IN EACH NOSTRIL EVERY DAY SPRAY TWO SPRAYS IN EACH NOSTRIL EVERY DAY SOLD: 03/27/2020 [facility] Amoxicillin 875 MG Oral Tablet Amoxicillin 12/21/2019 12:00:00 AM EDT ORAL active [facility] ([facility]) 875 mg 12/21/2019 12:00:00 AM EDT tablet 20 TAKE ONE TABLET BY MOUTH TWICE A DAY DIRECTED FOR 10 DAYS TAKE ONE TABLET BY MOUTH TWICE A DAY DIRECTED FOR 10 DAYS SOLD: 12/21/2019 [facility] 100 mg 11/18/2019 12:00:00 AM EDT tablet 20 TAKE ONE TABLET BY MOUTH TWICE A DAY FOR 10 DAYS TAKE ONE TABLET BY MOUTH TWICE A DAY FOR 10 DAYS SOLD: 11/18/2019 [facility] Insurance Providers Payer name Policy type / Coverage type Policy ID Covered democrat ID Covered democrat's relationship to humphreys Policy Humphreys Plan Information [employer] [place] P[place] 302/307 [id number] SP [id number] [place] [place] 302/307 [id number] SP [id number] [facility] [place] Commercial [id number] Self V [id number] [employer] BCBS Health Maintenance Organization (HMO) [id number] Self [id number] [employer] BCBS B [id number] [facility] Health Maintenance Organization (HMO) [id number] Self [id number] [employer] BCBS Health Maintenance Organization (HMO) [id number] Self [id number] [place] PPO 302/307 [id number] SP [id number] BCBS OF [place] 306/806 [id number] SP [id number] BLUE CROSS BLUE SHIELD-O/P [id number] 18 [id number] BCBS [employer] Ppo U/W Commercial [id number] Self BCBS OF [place] 306/806 [id number] SP [id number] [employer] BCBS P [id number] S VYA BLUE CROSS BLUE SHIELD-O/P [id number] 18 [id number] BLUE CROSS BLUE SHIELD-O/P [id number] MEDICAID [id number] SP [id number] Medicaid [place] Medigap Part B [id number] Self [id number] Problems, Conditions, and Diagnoses No Information Surgeries/Procedures Procedure Description Date Indications Data Source(s) OFFICE OUTPATIENT VISIT 15 MINUTES 09/24/2020 12:00:00 AM EDT [facility] (Timmy Foy MD) OFFICE OUTPATIENT VISIT 15 MINUTES 06/25/2020 12:00:00 AM EDT [facility] (Timmy Foy MD) Results ID Date Data Source [id number] 12/16/2020 12:00:00 AM EDT [facility] Name Value Range Interpretation Code Description Data Suzanna rce(s) Supporting Document(s) SARS coronavirus 2 Ag NEGATIVE [facility] This lab was ordered by [facility] and reported by [facility]. ID Date Data Source [id number] 12/09/2020 12:00:00 AM EDT [facility] Name Value Range Interpretation Code Description Data Suzanna rce(s) Supporting Document(s) SARS coronavirus 2 Ag NEGATIVE [facility] This lab was ordered by [facility] and reported by [facility]. ID Date Data Source -[id number]/[id number]/2020 12:00:00 AM EDT [facility] Name Value Range Interpretation Code Description Data Suzanna rce(s) Supporting Document(s) SARS coronavirus 2 Ag NEGATIVE [facility] This lab was ordered by [facility] and reported by [facility]. ID Date Data Source -[id number]/25/2020 12:00:00 AM EDT [facility] Name Value Range Interpretation Code Description Data Suzanna rce(s) Supporting Document(s) SARS coronavirus 2 Ag NEGATIVE [facility] This lab was ordered by [facility] and reported by [facility]. ID Date Data Source [id number]/21/2020 12:00:00 AM EDT [facility] Name Value Range Interpretation Code Description Data Suzanna rce(s) Supporting Document(s) SARS coronavirus 2 Ag NEGATIVE [facility] This lab was ordered by [facility] and reported by [facility]. ID Date Data Source [id number] 09/22/2020 12:00:00 AM EDT [facility] Name Value Range Interpretation Code Description Data Suzanna rce(s) Supporting Document(s) SARS coronavirus 2 Ag NEGATIVE [facility] This lab was ordered by [facility] and reported by [facility]. ID Date Data Source [id number] 08/21/2020 12:00:00 AM EDT [facility] Name Value Range Interpretation Code Description Data Suzanna rce(s) Supporting Document(s) SARS coronavirus 2 Ag NEGATIVE [facility] This lab was ordered by [facility] and reported by [facility]. ID Date Data Source [id number] 08/18/2020 05:57:00 AM EDT [facility] Name Value Range Interpretation Code Description Data Suzanna rce(s) Supporting Document(s) SARS-CoV-2 (COVID-19) RNA [Presence] in Respiratory specimen by [facility] with probe detection Not Detected [facility] This lab was ordered by [facility] and reported by [employer] ID Date Data Source [id number] 08/14/2020 12:00:00 AM EDT [facility] Name Value Range Interpretation Code Description Data Suzanna rce(s) Supporting Document(s) SARS coronavirus 2 Ag NEGATIVE [facility] This lab was ordered by [facility] and reported by [facility]. ID Date Data Source [id number] 08/11/2020 06:24:00 AM EDT [facility] Name Value Range Interpretation Code Description Data Suzanna rce(s) Supporting Document(s) SARS-CoV-2 (COVID-19) RNA [Presence] in Respiratory specimen by [facility]SA[facility] with probe detection Not Detected [facility] This lab was ordered by [facility] and reported by [employer] ID Date Data Source [id number] 08/08/2020 12:00:00 AM EDT [facility] Name Value Range Interpretation Code Description Data Suzanna rce(s) Supporting Document(s) SARS coronavirus 2 Ag NEGATIVE [facility] This lab was ordered by [facility] and reported by [facility]. ID Date Data Source [id number] 07/31/2020 12:00:00 AM EDT [facility] Name Value Range Interpretation Code Description Data Suzanna rce(s) Supporting Document(s) SARS coronavirus 2 Ag NEGATIVE [facility] This lab was ordered by [facility] and reported by [facility]. ID Date Data Source [id number] 07/28/2020 06:21:00 AM EDT [facility] Name Value Range Interpretation Code Description Data Suzanna rce(s) Supporting Document(s) SARS-CoV-2 (COVID-19) RNA [Presence] in Respiratory specimen by OKSA[facility] with probe detection Not Detected [facility] This lab was ordered by [facility] and reported by [employer] ID Date Data Source [id number] 07/27/2020 12:00:00 AM EDT [facility] Name Value Range Interpretation Code Description Data Suzanna rce(s) Supporting Document(s) SARS coronavirus 2 Ag NEGATIVE [facility] This lab was ordered by [facility] and reported by [facility]. ID Date Data Source [id number] 07/21/2020 07:11:00 AM EDT [facility] Name Value Range Interpretation Code Description Data Suzanna rce(s) Supporting Document(s) SARS-CoV-2 (COVID-19) RNA [Presence] in Respiratory specimen by OKSANA with probe detection Not Detected [facility] This lab was ordered by [facility] and reported by [employer] ID Date Data Source [id number] 07/18/2020 12:00:00 AM EDT [facility] Name Value Range Interpretation Code Description Data Suzanna rce(s) Supporting Document(s) SARS coronavirus 2 Ag NEGATIVE [facility] This lab was ordered by [facility] and reported by [facility]. ID Date Data Source [id number] 07/14/2020 07:16:00 AM EDT [facility] Name Value Range Interpretation Code Description Data Suzanna rce(s) Supporting Document(s) SARS-CoV-2 (COVID-19) RNA [Presence] in Respiratory specimen by OKSA[facility] with probe detection Not Detected [facility] This lab was ordered by [facility] and reported by [employer] ID Date Data Source [id number] 07/10/2020 12:00:00 AM EDT [facility] Name Value Range Interpretation Code Description Data Suzanna rce(s) Supporting Document(s) SARS coronavirus 2 Ag NEGATIVE [facility] This lab was ordered by [facility] and reported by [facility]. ID Date Data Source [id number] 07/07/2020 06:28:00 AM EDT [facility] Name Value Range Interpretation Code Description Data Suzanna rce(s) Supporting Document(s) SARS-CoV-2 (COVID-19) RNA [Presence] in Respiratory specimen by OKSANA with probe detection Not Detected [facility] This lab was ordered by [facility] and reported by [employer] ID Date Data Source [id number] 07/03/2020 12:00:00 AM EDT [facility] Name Value Range Interpretation Code Description Data Suzanna rce(s) Supporting Document(s) SARS-CoV2 Rapid Antigen Negative [facility] This lab was ordered by [facility] and reported by [facility]. ID Date Data Source [id number] 06/30/2020 08:06:00 AM EDT [facility] Name Value Range Interpretation Code Description Data Suzanna rce(s) Supporting Document(s) SARS-CoV-2 (COVID-19) RNA [Presence] in Respiratory specimen by OKSANA with probe detection Not Detected [facility] This lab was ordered by [facility] and reported by [employer] 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 Vaginal, ThinPrep Pap (Riveting Machine Operator) CYTOLOGY HX-------- Other Information:Previous Normal Pap: 06/25/19 Hysterectomy FINAL DIAGNOSIS---- INTERPRETATION: Negative for Intraepithelial Lesion or Malignancy. SPECIMEN ADEQUACY:Satisfactory for evaluation. TP Reflex HPV ASCUS Laboratory test result [facility] ([facility]el[facility] Woman [facility]' ASSIST[facility]) ID Date Data Source [id number] 06/23/2020 06:26:00 AM EDT [facility] Name Value Range Interpretation Code Description Data Suzanna rce(s) Supporting Document(s) SARS-CoV-2 (COVID-19) RNA [Presence] in Respiratory specimen by OKSANA with probe detection Not Detected [facility] This lab was ordered by [facility] and reported by [employer]. ID Date Data Source [id number] 06/09/2020 06:30:00 AM EDT [facility] Name Value Range Interpretation Code Description Data Suzanna rce(s) Supporting Document(s) SARS-CoV-2 (COVID-19) RNA [Presence] in Respiratory specimen by OKSANA with probe detection Not Detected [facility] This lab was ordered by [facility] and reported by [employer]. ID Date Data Source [id number] 06/05/2020 12:00:00 AM EDT [facility] Name Value Range Interpretation Code Description Data Suzanna rce(s) Supporting Document(s) SARS coronavirus 2 Ag NEGATIVE [facility] This lab was ordered by [facility] and reported by [facility]. ID Date Data Source [id number] 06/02/2020 07:00:00 AM EDT [facility] Name Value Range Interpretation Code Description Data Suzanna rce(s) Supporting Document(s) SARS coronavirus 2 RNA Not Detected [facility] This lab was ordered by [facility] and reported by [facility]. ID Date Data Source [id number] 05/29/2020 12:00:00 AM EDT [facility] Name Value Range Interpretation Code Description Data Suzanna rce(s) Supporting Document(s) SARS coronavirus 2 Ag NEGATIVE [facility] This lab was ordered by [facility] and reported by [facility]. ID Date Data Source [id number] 05/26/2020 07:07:00 AM EDT [facility] Name Value Range Interpretation Code Description Data Suzanna rce(s) Supporting Document(s) SARS coronavirus 2 RNA Not Detected [facility] This lab was ordered by [facility] and reported by [facility]. ID Date Data Source [id number] 05/22/2020 12:00:00 AM EDT [facility] Name Value Range Interpretation Code Description Data Suzanna rce(s) Supporting Document(s) SARS coronavirus 2 Ag NEGATIVE [facility] This lab was ordered by [facility] and reported by [facility]. ID Date Data Source [id number] 05/19/2020 07:00:00 AM EDT [facility] Name Value Range Interpretation Code Description Data Suzanna rce(s) Supporting Document(s) SARS coronavirus 2 RNA Not Detected [facility] [place] This lab was ordered by [facility] and reported by [facility]. ID Date Data Source [id number] 05/15/2020 12:00:00 AM EST [facility] Name Value Range Interpretation Code Description Data Suzanna rce(s) Supporting Document(s) SARS coronavirus 2 Ag NEGATIVE [facility] This lab was ordered by [facility] and reported by [facility]. ID Date Data Source [id number] 05/12/2020 07:10:00 AM EST [facility] Name Value Range Interpretation Code Description Data Suzanna rce(s) Supporting Document(s) SARS coronavirus 2 RNA Not Detected [facility] [place] This lab was ordered by [facility] and reported by [facility]. ID Date Data Source [id number] 05/08/2020 12:00:00 AM EST [facility] Name Value Range Interpretation Code Description Data Suzanna rce(s) Supporting Document(s) SARS coronavirus 2 Ag NEGATIVE [facility] This lab was ordered by [facility] and reported by [facility]. ID Date Data Source [id number] 05/05/2020 07:00:00 AM EST [facility] Name Value Range Interpretation Code Description Data Suzanna rce(s) Supporting Document(s) SARS coronavirus 2 RNA Not Detected [facility] [place] This lab was ordered by [facility] and reported by [facility]. ID Date Data Source [id number] 04/28/2020 08:00:00 AM EST [facility] Name Value Range Interpretation Code Description Data Suzanna rce(s) Supporting Document(s) SARS coronavirus 2 RNA Not Detected [facility] [place] This lab was ordered by [facility] and reported by [facility]. ID Date Data Source [id number] 04/24/2020 12:00:00 AM EST [facility] Name Value Range Interpretation Code Description Data Suzanna rce(s) Supporting Document(s) SARS coronavirus 2 Ag NEGATIVE [facility] This lab was ordered by [facility] and reported by [facility]. ID Date Data Source [id number] 04/21/2020 10:00:00 AM EST [facility] Name Value Range Interpretation Code Description Data Suzanna rce(s) Supporting Document(s) SARS coronavirus 2 RNA Not Detected [facility] [place] This lab was ordered by [facility] and reported by [facility]. ID Date Data Source [id number] 04/17/2020 12:00:00 AM EST [facility] Name Value Range Interpretation Code Description Data Suzanna rce(s) Supporting Document(s) SARS coronavirus 2 Ag NEGATIVE [facility] This lab was ordered by [facility] and reported by [facility]. ID Date Data Source [id number] 04/14/2020 06:00:00 AM EST [facility] Name Value Range Interpretation Code Description Data Suzanna rce(s) Supporting Document(s) SARS coronavirus 2 RNA Not Detected [facility] [place] This lab was ordered by [facility] and reported by [facility]. ID Date Data Source [id number] 2020 12:00:00 AM EST [facility] Name Value Range Interpretation Code Description Data Suzanna rce(s) Supporting Document(s) SARS coronavirus 2 Ag [facility] This lab was ordered by [facility] and reported by [facility]. ID Date Data Source [id number] 04/07/2020 06:00:00 AM EST [facility] Name Value Range Interpretation Code Description Data Suzanna rce(s) Supporting Document(s) SARS coronavirus 2 RNA Not Detected [facility] [place] This lab was ordered by [facility] and reported by [facility]. ID Date Data Source [id number] 04/03/2020 12:00:00 AM EST [facility] Name Value Range Interpretation Code Description Data Suzanna rce(s) Supporting Document(s) SARS coronavirus 2 Ag NEGATIVE [facility] This lab was ordered by [facility] and reported by [facility]. ID Date Data Source [id number] 03/31/2020 06:08:00 AM EST [facility] Name Value Range Interpretation Code Description Data Suzanna rce(s) Supporting Document(s) SARS coronavirus 2 RNA Not Detected [facility] [place] This lab was ordered by [facility] and reported by [facility]. ID Date Data Source [id number] 03/27/2020 12:00:00 AM EST [facility] Name Value Range Interpretation Code Description Data Suzanna rce(s) Supporting Document(s) SARS coronavirus 2 Ag Negative [facility] This lab was ordered by [facility] and reported by [facility]. ID Date Data Source [id number] 03/24/2020 06:23:00 AM EST [facility] Name Value Range Interpretation Code Description Data Suzanna rce(s) Supporting Document(s) SARS coronavirus 2 RNA Not Detected [facility] [place] This lab was ordered by [facility] and reported by [facility]. ID Date Data Source [id number] 03/20/2020 12:00:00 AM EST [facility] Name Value Range Interpretation Code Description Data Suzanna rce(s) Supporting Document(s) SARS-CoV2 Rapid Antigen Negative [facility] This lab was ordered by [facility] and reported by [facility]. ID Date Data Source [id number] 03/17/2020 08:00:00 AM EST [facility] Name Value Range Interpretation Code Description Data Suzanna rce(s) Supporting Document(s) SARS coronavirus 2 RNA Not Detected [facility] [place] This lab was ordered by [facility] and reported by [facility]. ID Date Data Source [id number] 03/10/2020 07:00:00 AM EST [facility] Name Value Range Interpretation Code Description Data Suzanna rce(s) Supporting Document(s) SARS coronavirus 2 RNA Not Detected [facility] [place] This lab was ordered by [facility] and reported by [facility]. ID Date Data Source [id number] 03/03/2020 12:45:00 PM EST [facility] Name Value Range Interpretation Code Description Data Suzanna rce(s) Supporting Document(s) SARS coronavirus 2 RNA [facility] This lab was ordered by [facility] and reported by [facility]. ID Date Data Source [id number] 02/25/2020 06:30:00 AM EST [facility] Name Value Range Interpretation Code Description Data Suzanna rce(s) Supporting Document(s) SARS coronavirus 2 RNA [facility] This lab was ordered by [facility] and reported by [facility]. ID Date Data Source [id number] 02/18/2020 08:00:00 AM EST [facility] Name Value Range Interpretation Code Description Data Suzanna rce(s) Supporting Document(s) SARS coronavirus 2 RNA [facility] This lab was ordered by [facility] and reported by [facility]. ID Date Data Source [id number] 02/11/2020 05:15:00 AM EST [facility] Name Value Range Interpretation Code Description Data Suzanna rce(s) Supporting Document(s) SARS coronavirus 2 RNA [facility] This lab was ordered by [facility] and reported by [facility]. ID Date Data Source [id number] 02/04/2020 07:00:00 AM EST [facility] Name Value Range Interpretation Code Description Data Suzanna rce(s) Supporting Document(s) SARS coronavirus 2 RNA [facility] This lab was ordered by [facility] and reported by [facility]. ID Date Data Source [id number] 01/28/2020 09:00:00 AM EST [facility] Name Value Range Interpretation Code Description Data Suzanna rce(s) Supporting Document(s) SARS coronavirus 2 RNA [facility] This lab was ordered by [facility] and reported by [facility]. ID Date Data Source [id number] 01/21/2020 06:00:00 AM EST [facility] Name Value Range Interpretation Code Description Data Suzanna rce(s) Supporting Document(s) SARS coronavirus 2 RNA [facility] This lab was ordered by [facility] and reported by [facility]. ID Date Data Source [id number] 01/14/2020 08:00:00 AM EST [facility] Name Value Range Interpretation Code Description Data Suzanna rce(s) Supporting Document(s) SARS coronavirus 2 RNA [facility] This lab was ordered by [facility] and reported by [facility]. ID Date Data Source [id number] 01/07/2020 05:30:00 AM EST [facility] Name Value Range Interpretation Code Description Data Suzanna rce(s) Supporting Document(s) SARS coronavirus 2 RNA [facility] This lab was ordered by [facility] and reported by [facility]. ID Date Data Source [id number] 12/31/2019 05:30:00 AM EDT [facility] Name Value Range Interpretation Code Description Data Suzanna rce(s) Supporting Document(s) SARS coronavirus 2 RNA [facility] This lab was ordered by [facility] and reported by [facility]. ID Date Data Source [id number] 12/24/2019 05:30:00 AM EDT [facility] Name Value Range Interpretation Code Description Data Suzanna rce(s) Supporting Document(s) SARS coronavirus 2 RNA [facility] This lab was ordered by [facility] and reported by [facility]. ID Date Data Source [id number] 12/17/2019 05:45:00 AM EDT [facility] Name Value Range Interpretation Code Description Data Suzanna rce(s) Supporting Document(s) SARS coronavirus 2 RNA [facility] This lab was ordered by [facility] and reported by [facility]. ID Date Data Source [id number] 12/10/2019 06:50:00 AM EDT [facility] Name Value Range Interpretation Code Description Data Suzanna rce(s) Supporting Document(s) SARS coronavirus 2 RNA [facility] This lab was ordered by [facility] and reported by [facility]. ID Date Data Source [id number] 12/03/2019 08:00:00 AM EDT [facility] Name Value Range Interpretation Code Description Data Suzanna rce(s) Supporting Document(s) SARS coronavirus 2 RNA [facility] This lab was ordered by [facility] and reported by [facility]. ID Date Data Source [id number] 11/26/2019 01:15:00 PM EDT [facility] Name Value Range Interpretation Code Description Data Suzanna rce(s) Supporting Document(s) SARS coronavirus 2 RNA [facility] This lab was ordered by [facility] and reported by [facility]. ID Date Data Source [id number] 11/19/2019 10:00:00 AM EDT [facility] Name Value Range Interpretation Code Description Data Suzanna rce(s) Supporting Document(s) SARS coronavirus 2 RNA [facility] This lab was ordered by [facility] and reported by [facility]. ID Date Data Source [id number] 11/14/2019 08:00:00 AM EDT [facility] Name Value Range Interpretation Code Description Data Suzanna rce(s) Supporting Document(s) SARS coronavirus 2 RNA [facility] This lab was ordered by [facility] and reported by [facility]. ID Date Data Source [id number] 11/05/2019 07:06:00 AM EDT [facility] Name Value Range Interpretation Code Description Data Suzanna rce(s) Supporting Document(s) SARS coronavirus 2 RNA [facility] This lab was ordered by [facility] and reported by [facility]. ID Date Data Source [id number] 10/29/2019 08:34:00 AM EDT [facility] Name Value Range Interpretation Code Description Data Suzanna rce(s) Supporting Document(s) SARS coronavirus 2 RNA [facility] This lab was ordered by [facility] and reported by [facility]. Procedure Social History Code Duration Value Status Description Data Source(s ) Smoking 06/27/2020 12:00:00 AM EDT Patient is a former smoker completed Patient is a former smoker [employer] ([employer]) Vital Signs ID Date Data Source UNK Name Value Range Interpretation Code Description Data Source(s) Diastolic blood pressure 72 mm[Hg] 72 mm[Hg] [facility] ([employer]) Systolic blood pressure 146 mm[Hg] 146 mm[Hg] M [facility]ENT ([employer]) Body height 61.75 [in_i] 61.75 [in_i] [facility] ([place] [employer]) 5'1.75" Body weight 173.00 [lb_av] 173.00 [lb_av] MEDEN T ([employer]) Body mass index (BMI) [Ratio] 31.9 kg/m2 31.9 k g/m2 [facility] ([place] [employer]) Body surface area Derived from formula 1.79 m2 1.79 m2 [facility] ([place] [employer]) Systolic blood pressure 145 mm[Hg] 145 mm[Hg] M [facility] ([facility], [facility]) Diastolic blood pressure 81 mm[Hg] 81 mm[Hg] [facility] ([facility], [facility]) Body temperature 97.7 [degF] 97.7 [degF] [facility] ([facility], [facility]) Heart rate 69 /min 69 /min [facility] ([facility], [facility]) Body weight 168.00 [lb_av] 168.00 [lb_av] [facility] T ([facility], [facility]) Body height 62 [in_i] 62 [in_i] [facility] ([facility]) 5'2" Body mass index (BMI) [Ratio] 30.7 kg/m2 30.7 k g/m2 [facility] ([facility]) Respiratory rate 14 /min 14 /min [facility] ( [facility]) Oxygen saturation in Arterial blood by Pulse oximetry 97 % 97 % [facility] ([facility])
--- OUTSIDE RECORDS SUMMARY | 2020-12-22 06:19 | CCD | Continuity of Care Document ---
Author Author Rosalva CAPPS Organization Unknown Address [address] [facility] [address] [place] [address] Phone [phone] Care Team Providers [employer]el Emery Buffer Name Role Phone BRITTANY CAPPS AUTM [phone] Social History Type Date Description Comments Sex Unknown Immunizations CPT Code Status Date Vaccine Lot # [id number] Given 06/21/2005 Tetanus Toxoid Injection Procedures Date Code Description Status 09/24/2020 95037 Office/Outpatient Established Lo w MDM 20-29 Min Completed 06/25/2020 73968 Office/Outpatient Established Lo w MDM 20-29 Min Completed Encounters Type Date Location Provider Dx Diagnosis Office Visit 09/24/2020 8:45a [facility] YESSICA Stanford I10 Essential (primary) hyperten laura E78.5 Hyperlipidemia, unspecified J30.9 Allergic rhinitis, unspecifi ed Office Visit 06/25/2020 8:45a [facility] YESSICA Stanford I10 Essential (primary) hyperten laura J30.9 Allergic rhinitis, unspecifi ed Assessments Date Code Description Provider 09/24/2020 I10 Essential (primary) hypertension YESSICA Gray 09/24/2020 E78.5 Hyperlipidemia, unspecified YESSICA Birch 09/24/2020 J30.9 Allergic rhinitis, unspecified YESSICA Us 07/03/2020 I10 Essential (primary) hypertension YESSICA Gray 07/03/2020 R53.83 Other fatigue YESSICA Torres 06/25/2020 I10 Essential (primary) hypertension YESSICA Gray 06/25/2020 J30.9 Allergic rhinitis, unspecified F YESSICA Shukla Plan of Treatment Future Appointment(s):* 12/18/2020 9:30 am - YESSICA Gray at [facility]
--- OUTSIDE RECORDS SUMMARY | 2020-12-22 07:58 | CCD ---
Author Author [facility] Organization [facility] Address Unknown Phone Unavailable Care Team Providers Care Ip Network Architect Name Role Phone Iqbal, Emmie STRATEGIC PLANNING MANAGER Unavailable Unavailable Iqbal, Emmie STRATEGIC PLANNING MANAGER Unavailable Unavailable Iqbal, Emmie STRATEGIC PLANNING MANAGER Unavailable Unavailable Iqbal, Emmie STRATEGIC PLANNING MANAGER Unavailable Unavailable Iqbal, Emmie STRATEGIC PLANNING MANAGER Unavailable Unavailable Iqbal, Emmie STRATEGIC PLANNING MANAGER Unavailable Unavailable Iqbal, Emmie STRATEGIC PLANNING MANAGER Unavailable Unavailable Iqbal, Emmie STRATEGIC PLANNING MANAGER Unavailable Unavailable Iqbal, Emmie STRATEGIC PLANNING MANAGER Unavailable Unavailable Iqbal, Emmie STRATEGIC PLANNING MANAGER Unavailable Unavailable Iqbal, Emmie STRATEGIC PLANNING MANAGER Unavailable Unavailable Iqbal, Emmie STRATEGIC PLANNING MANAGER Unavailable Unavailable Iqbal, Emmie STRATEGIC PLANNING MANAGER Unavailable Unavailable GUTIERREZ, L SARAHI LOPEZ [...] G BRITTANY PA Unavailable Unavailable TONTARSKI, G BRTITANY PA Unavailable Unavailable TONTARSKI, G BRITTANY PA [...] is protected by Article 27-F of the [facility] Public Health law. If you continue you may have access to information: Regarding HIV / AIDS; Provided by facilities licensed or operated by the [facility] Office of Mental Health; or Provided by the [facility] Office for People With Developmental Disabilities. If such information is present, then the following [facility] mandated warning applies: This information has [...] law may result in a fine or intermediate sentence or both. A general authorization for the release of medical or other information is NOT sufficient authorization for further disc losure. Allergies and Adverse Reactions Type Description Substance Reaction Status Data Source(s ) Drug Allergy Drug Allergy NKDA [facility] ([facility]) Family History Family Member Name Family Member Gender Family Member Status Date o f Status Description Data Source(s) Unknown Unknown Problem [facility] (Abelino gonzalez DATA SECURITY ANALYST) Unknown Male Problem [facility] ([facility]) Unknown Female Problem [facility] ([facility]) Encounters Encounter Providers Location Date Indications Data Source(s ) Outpatient Attender: BRITTANY JUAN [facility] 09/24/2020 08:45:00 AM EDT [facility] (Timmy Foy MD) Outpatient Attender: SARAHI Roca Woman emergency dispatch operator 11:00:00 AM EDT [facility] ([facility] DATA SECURITY ANALYST) Outpatient Attender: BRITTANY JUAN [facility] 06/25/2020 08:45:00 AM EDT [facility] (Timmy Foy MD) Outpatient Attender: BRITTANY JUAN [facility] 03/27/2020 10:30:00 AM EST [facility] (Timmy Foy MD) Outpatient Attender: Emmie myrick 12/21/2019 08:05:00 AM EDT [facility] ([facility]) Immunizations Vaccine Date Status Description Data Source(s) COVID-19 VACCINE Sabrina 11/19/2020 12:00:00 AM EDT completed [facility]IS Vaccine Series Complete: YESThis Data wa s Submitted to [facility] Calendar. Medications Medication Brand Name Start Date Product [...] type / Coverage type Policy ID Covered republican ID Covered republican's relationship to humphreys Policy Humphreys Plan Information [place] P[place] 302/307 [id number] SP [id number] [place] 302/307 [id number] SP [id number] BS Of [place] Commercial [id number] Self V [id number] [employer] BCBS Health Maintenance Organization (HMO) [id number] Self [id number] [employer]CELL[employer] BCBS B [id number] S VYS [id number] [facility] BS Health Maintenance Organization (HMO) [id number] Self [id number] [employer] BCBS Health Maintenance Organization (HMO) [id number] Self [id number] [place] PPO 302/307 [id number] SP [id number] BCBS [place] 306/806 [id number] SP [id number] BLUE CROSS BLUE SHIELD-O/P [id number] 18 [id number] BCBS [employer] Ppo U/W Commercial [id number] Self BCBS OF [place] 306/806 [id number] SP [id number] EXCELL[employer] BCBS P [id number] S VYA BLUE CROSS BLUE SHIELD-O/P [id number] 18 [id number] BLUE CROSS BLUE SHIELD-O/P [id number] 18 [id number] MEDICAID [id number] SP [id number] OTHER WORKERS COMPENSATION [id number] SP [id number] Medicaid [place] Medigap Part B [id number] Self [id number] Problems, Conditions, and Diagnoses No Information Surgeries/Procedures [...] NEGATIVE [facility] This lab [facility] and reported by [facility]. ID Date Data Source [id number] 12/09/2020 12:00:00 AM EDT [facility]OH Name Value Range Interpretation Code Description Data Suzanna rce(s) Supporting Document(s) SARS coronavirus 2 Ag NEGATIVE [facility] reported by [facility]. ID Date Data Source [id number]/02/2020 12:00:00 AM EDT [facility] Name Value Range Interpretation Code Description Data Suzanna rce(s) Supporting Document(s) SARS coronavirus 2 Ag NEGATIVE [facility] reported by [facility]. ID Date Data Source [id number]/25/2020 12:00:00 AM EDT [facility] Name Value Range Interpretation Code Description Data Suzanna rce(s) Supporting Document(s) SARS coronavirus 2 Ag NEGATIVE [facility] This lab [facility] and reported by [facility]. ID Date Data Source [id number] 10/21/2020 12:00:00 AM EDT [facility] Name Value Range Interpretation Code Description Data Suzanna rce(s) Supporting Document(s) SARS coronavirus 2 Ag NEGATIVE [facility] This lab was ordered by [facility] and reported by [facility]. ID Date Data Source [id number] 09/22/2020 12:00:00 AM EDT [facility] Name Value Range Interpretation Code Description Data Suzanna rce(s) Supporting Document(s) SARS coronavirus 2 Ag NEGATIVE [facility] This lab was ordered by [facility] and reported by [facility]. ID Date Data Source [id number] 08/21/2020 12:00:00 AM EDT [facility] Name Value Range Interpretation Code Description Data Suzanna rce(s) Supporting Document(s) SARS coronavirus 2 Ag NEGATIVE [facility] This lab was ordered by [facility] and reported by [facility]. ID Date Data Source [id number] 08/18/2020 05:57:00 AM EDT [facility] Name Value Range Interpretation Code Description Data Suzanna rce(s) Supporting Document(s) SARS-CoV-2 (COVID-19) RNA [Presence] in Respiratory specimen by OKSANA with probe detection Not Detected [facility]OH This lab was ordered by [facility] and reported by [employer]. ID Date Data Source [id number] 08/14/2020 12:00:00 AM EDT [facility] Name Value Range Interpretation Code Description Data Suzanna rce(s) Supporting Document(s) SARS coronavirus 2 Ag NEGATIVE [facility] This lab was ordered by [facility] and reported by [facility]. ID Date Data Source [id number] 08/11/2020 06:24:00 AM EDT [facility] Name Value Range Interpretation Code Description Data Suzanna rce(s) Supporting Document(s) SARS-CoV-2 (COVID-19) RNA [Presence] in Respiratory specimen by OKSANA with probe detection Not Detected [facility] This lab was ordered by [facility] and reported by [employer]. ID Date Data Source [id number] 08/08/2020 12:00:00 AM EDT [facility] Name Value Range Interpretation Code Description Data Suzanna rce(s) Supporting Document(s) SARS coronavirus 2 Ag NEGATIVE [facility] This lab was ordered by [facility] and reported by [facility]. ID Date Data Source [id number] 07/31/2020 12:00:00 AM EDT [facility] Name Value Range Interpretation Code Description Data Suzanna rce(s) Supporting Document(s) SARS coronavirus 2 Ag NEGATIVE [facility] This lab was ordered by [facility] and reported by [facility]. ID Date Data Source [id number] 07/28/2020 06:21:00 AM EDT [facility] Name Value Range Interpretation Code Description Data Suzanna rce(s) Supporting Document(s) SARS-CoV-2 (COVID-19) RNA [Presence] in Respiratory specimen by OKSANA with probe detection Not Detected [facility] This lab was ordered by [facility] and reported by [employer]. ID Date Data Source [id number] 07/27/2020 12:00:00 AM EDT [facility] Name Value Range Interpretation Code Description Data Suzanna rce(s) Supporting Document(s) SARS coronavirus 2 Ag NEGATIVE [facility] This lab was ordered by [facility] and reported by [facility]. ID Date Data Source [id number] 07/21/2020 07:11:00 AM EDT [facility] Name Value Range Interpretation Code Description Data Suzanna rce(s) Supporting Document(s) SARS-CoV-2 (COVID-19) RNA [Presence] in Respiratory specimen by OKSANA with probe detection Not Detected [facility] This lab was ordered by [facility] and reported by [employer] ID Date Data Source [id number] 07/18/2020 12:00:00 AM EDT [facility] Name Value Range Interpretation Code Description Data Suzanna rce(s) Supporting Document(s) SARS coronavirus 2 Ag NEGATIVE [facility] This lab was ordered by [facility] and reported by [facility]. ID Date Data Source [id number] 07/14/2020 07:16:00 AM EDT [facility] Name Value Range Interpretation Code Description Data Suzanna rce(s) Supporting Document(s) SARS-CoV-2 (COVID-19) RNA [Presence] in Respiratory specimen by OKSANA with probe detection Not Detected [facility] This lab was ordered by [facility] and reported by [employer] ID Date Data Source [id number] 07/10/2020 12:00:00 AM EDT [facility] Name Value Range Interpretation Code Description Data Suzanna rce(s) Supporting Document(s) SARS coronavirus 2 Ag NEGATIVE [facility] This lab was ordered by [facility] and reported by [facility]. ID Date Data Source [id number] 07/07/2020 06:28:00 AM EDT [facility] Name Value Range Interpretation Code Description Data Suzanna rce(s) Supporting Document(s) SARS-CoV-2 (COVID-19) RNA [Presence] in Respiratory specimen by OKSANA with probe detection Not Detected [facility] This lab was ordered by [facility] and reported by [employer] ID Date Data Source [id number] 07/03/2020 12:00:00 AM EDT [facility] Name Value Range Interpretation Code Description Data Suzanna rce(s) Supporting Document(s) SARS-CoV2 Rapid Antigen Negative [facility] This lab was ordered by [facility] and reported by [facility]. ID Date Data Source [id number] 06/30/2020 08:06:00 AM EDT [facility] Name Value Range Interpretation Code Description Data Suzanna rce(s) Supporting Document(s) SARS-CoV-2 (COVID-19) RNA [Presence] in Respiratory specimen by OKSANA with probe detection Not Detected [facility] This lab was ordered by [facility] and reported by [employer] ID Date Data Source [id number] 06/27/2020 12:00:00 PM EDT MED[facility] ([facility] DATA SECURITY ANALYST) Name Value Range Interpretation Code Description Data Suzanna rce(s) Supporting Document(s) TP Reflex HPV ASCUS Laboratory test result MEDENT (Roca Woman DATA SECURITY ANALYST) SPECIMEN PART------ A. Vaginal, ThinPrep Pap ([employer] Make Up Helper) CYTOLOGY HX-------- Other Information:Previous Normal Pap: 06/25/19 Hysterectomy FINAL DIAGNOSIS---- INTERPRETATION: Negative for Intraepithelial Lesion or Malignancy. SPECIMEN ADEQUACY:Satisfactory for evaluation. TP Reflex HPV ASCUS Laboratory test result MEDENT (Abelino Woman DATA SECURITY ANALYST) ID Date Data Source [id number] 06/23/2020 06:26:00 AM EDT [facility] Name Value Range Interpretation Code Description Data Suzanna rce(s) Supporting Document(s) SARS-CoV-2 (COVID-19) RNA [Presence] in Respiratory specimen by OKSANA with probe detection Not Detected [facility] lab [facility] and reported by [employer]. ID Date Data Source [id number] 06/09/2020 06:30:00 AM EDT [facility] Name Value Range Interpretation Code Description Data Suzanna rce(s) Supporting Document(s) SARS-CoV-2 (COVID-19) RNA [Presence] in Respiratory specimen by OKSANA with probe detection Not Detected [facility] This lab was ordered by [facility] and reported by [employer] ID Date Data Source [id number] 06/05/2020 12:00:00 AM EDT [facility] Name Value Range Interpretation Code Description Data Suzanna rce(s) Supporting Document(s) SARS coronavirus 2 Ag NEGATIVE [facility] This lab was ordered by [facility] and reported by [facility]. ID Date Data Source [id number] 06/02/2020 07:00:00 AM EDT [facility] Name Value Range Interpretation Code Description Data Suzanna rce(s) Supporting Document(s) SARS coronavirus 2 [facility] and reported by [facility]. ID Date Data Source [id number] 05/29/2020 12:00:00 AM EDT [facility] Name Value Range Interpretation Code Description Data Suzanna rce(s) Supporting Document(s) SARS coronavirus 2 Ag NEGATIVE [facility] This lab was ordered by [facility] and reported by [facility]. ID Date Data Source [id number] 05/26/2020 07:07:00 AM EDT [facility] Name Value Range Interpretation Code Description Data Suzanna rce(s) Supporting Document(s) SARS coronavirus 2 RNA Not Detected [facility] [place] This lab was ordered [facility] and reported by [facility]. ID Date Data Source [id number] 05/22/2020 12:00:00 AM EDT [facility] Name Value Range Interpretation Code Description Data Suzanna rce(s) Supporting Document(s) SARS coronavirus 2 Ag NEGATIVE [facility] This lab was ordered by [facility] and reported by [facility]. ID Date Data Source [id number] 05/19/2020 07:00:00 AM EDT [facility] Name Value Range Interpretation Code Description Data Suzanna rce(s) Supporting Document(s) SARS coronavirus 2 RNA Not Detected [facility] [place] This lab was ordered [facility] and reported by [facility]. ID Date Data Source [id number] 05/15/2020 12:00:00 AM EST [facility] Name Value Range Interpretation Code Description Data Suzanna rce(s) Supporting Document(s) SARS coronavirus 2 Ag NEGATIVE [facility] This lab was ordered by [facility] and reported by [facility]. ID Date Data Source [id number] 05/12/2020 07:10:00 AM EST [facility] Name Value Range Interpretation Code Description Data Suzanna rce(s) Supporting Document(s) SARS coronavirus 2 RNA Not Detected [facility] [place] This lab was ordered [facility] and reported by [facility]. ID Date Data Source [id number] 05/08/2020 12:00:00 AM EST [facility] Name Value Range Interpretation Code Description Data Suzanna rce(s) Supporting Document(s) SARS coronavirus 2 Ag NEGATIVE [facility] This lab was ordered by [facility] and reported by [facility]. ID Date Data Source [id number] 05/05/2020 07:00:00 AM EST [facility] Name Value Range Interpretation Code Description Data Suzanna rce(s) Supporting Document(s) SARS coronavirus 2 RNA Not Detected [facility] [place] This lab was ordered [facility] and reported by [facility]. ID Date Data Source [id number] 04/28/2020 08:00:00 AM EST [facility] Name Value Range Interpretation Code Description Data Suzanna rce(s) Supporting Document(s) SARS coronavirus 2 RNA Not Detected [facility] [place] This lab was ordered [facility] and reported by [facility]. ID Date Data Source [id number] 04/24/2020 12:00:00 AM EST [facility] Name Value Range Interpretation Code Description Data Suzanna rce(s) Supporting Document(s) SARS coronavirus 2 Ag NEGATIVE [facility] This lab was ordered by [facility] and reported by [facility]. ID Date Data Source [id number] 04/21/2020 10:00:00 AM EST [facility] Name Value Range Interpretation Code Description Data Suzanna rce(s) Supporting Document(s) SARS coronavirus 2 RNA Not Detected [facility] [place] This lab was ordered [facility] and reported by [facility]. ID Date Data Source [id number] 04/17/2020 12:00:00 AM EST [facility] Name Value Range Interpretation Code Description Data Suzanna rce(s) Supporting Document(s) SARS coronavirus 2 Ag NEGATIVE [facility] This lab was ordered by [facility] and reported by [facility]. ID Date Data Source [id number] 04/14/2020 06:00:00 AM EST [facility] Name Value Range Interpretation Code Description Data Suzanna rce(s) Supporting Document(s) SARS coronavirus 2 RNA Not Detected [facility] [place] This lab was ordered [facility] and reported by [facility]. ID Date Data Source [id number] 2020 12:00:00 AM EST [facility] Name Value Range Interpretation Code Description Data Suzanna rce(s) Supporting Document(s) SARS coronavirus 2 Ag [facility] This lab was ordered by [facility] and reported by [facility]. ID Date Data Source [id number] 04/07/2020 06:00:00 AM EST [facility] Name Value Range Interpretation Code Description Data Suzanna rce(s) Supporting Document(s) SARS coronavirus 2 RNA Not Detected [facility] [place] This lab was ordered [facility] and reported by [facility]. ID Date Data Source [id number] 04/03/2020 12:00:00 AM EST [facility] Name Value Range Interpretation Code Description Data Suzanna rce(s) Supporting Document(s) SARS coronavirus 2 Ag NEGATIVE [facility] This lab was ordered by [facility] and reported by [facility]. ID Date Data Source [id number] 03/31/2020 06:08:00 AM EST [facility] Name Value Range Interpretation Code Description Data Suzanna rce(s) Supporting Document(s) SARS coronavirus 2 RNA Not Detected [facility] [place] This lab was ordered [facility] and reported by [facility]. ID Date Data Source [id number] 03/27/2020 12:00:00 AM EST [facility] Name Value Range Interpretation Code Description Data Suzanna rce(s) Supporting Document(s) SARS coronavirus 2 Ag Negative [facility] This lab was ordered by [facility] and reported by [facility]. ID Date Data Source [id number] 03/24/2020 06:23:00 AM EST [facility] Name Value Range Interpretation Code Description Data Suzanna rce(s) Supporting Document(s) SARS coronavirus 2 RNA Not Detected [facility] [place] This lab was ordered [facility] and reported by [facility]. ID Date Data Source [id number] 03/20/2020 12:00:00 AM EST [facility] Name Value Range Interpretation Code Description Data Suzanna rce(s) Supporting Document(s) SARS-CoV2 Rapid Antigen Negative [facility] This lab was ordered by [facility] and reported by [facility]. ID Date Data Source [id number] 03/17/2020 08:00:00 AM EST [facility] Name Value Range Interpretation Code Description Data Suzanna rce(s) Supporting Document(s) SARS coronavirus 2 RNA Not Detected [facility] [place] This lab was [facility] and reported by [facility]. ID Date Data Source [id number] 03/10/2020 07:00:00 AM EST [facility] Name Value Range Interpretation Code Description Data Suzanna rce(s) Supporting Document(s) SARS coronavirus 2 RNA Not Detected [facility] [place] This lab was ordered [facility] and reported by [facility]. ID Date Data Source [id number] 03/03/2020 12:45:00 PM EST [facility] Name Value Range Interpretation Code Description Data Suzanna rce(s) Supporting Document(s) SARS coronavirus 2 RNA [facility] This lab was [facility] and reported by [facility]. ID Date Data Source [id number] 02/25/2020 06:30:00 AM EST [facility] Name Value Range Interpretation Code Description Data Suzanna rce(s) Supporting Document(s) SARS coronavirus 2 RNA [facility] This lab was [facility] and reported by [facility]. ID Date Data Source [id number] 02/18/2020 08:00:00 AM EST [facility] Name Value Range Interpretation Code Description Data Suzanna rce(s) Supporting Document(s) SARS coronavirus 2 RNA [facility] This lab was [facility] and reported by [facility]. ID Date Data Source [id number] 02/11/2020 05:15:00 AM EST [facility] Name Value Range Interpretation Code Description Data Suzanna rce(s) Supporting Document(s) SARS coronavirus 2 RNA [facility] This lab was [facility] and reported by [facility]. ID Date Data Source [id number] 02/04/2020 07:00:00 AM EST [facility] Name Value Range Interpretation Code Description Data Suzanna rce(s) Supporting Document(s) SARS coronavirus 2 RNA [facility] This lab was [facility] and reported by [facility]. ID Date Data Source [id number] 01/28/2020 09:00:00 AM EST [facility] Name Value Range Interpretation Code Description Data Suzanna rce(s) Supporting Document(s) SARS coronavirus 2 RNA [facility] This lab was ordered [facility] and reported by [facility]. ID Date Data Source [id number] 01/21/2020 06:00:00 AM EST [facility] Name Value Range Interpretation Code Description Data Suzanna rce(s) Supporting Document(s) SARS coronavirus 2 RNA [facility] This lab was ordered [facility] and reported by [facility]. ID Date Data Source [id number] 01/14/2020 08:00:00 AM EST [facility] Name Value Range Interpretation Code Description Data Suzanna rce(s) Supporting Document(s) SARS coronavirus 2 RNA [facility] This lab [facility] and reported by [facility]. ID Date Data Source [id number] 01/07/2020 05:30:00 AM EST [facility] Name Value Range Interpretation Code Description Data Suzanna rce(s) Supporting Document(s) SARS coronavirus 2 RNA [facility] This lab [facility] and reported by [facility]. ID Date Data Source [id number] 12/31/2019 05:30:00 AM EDT [facility] Name Value Range Interpretation Code Description Data Suzanna rce(s) Supporting Document(s) SARS coronavirus 2 RNA [facility] This lab was [facility] and reported by [facility]. ID Date Data Source [id number] 12/24/2019 05:30:00 AM EDT [facility] Name Value Range Interpretation Code Description Data Suzanna rce(s) Supporting Document(s) SARS coronavirus 2 RNA [facility] This lab [facility] and reported by [facility]. ID Date Data Source [id number] 12/17/2019 05:45:00 AM EDT [facility] Name Value Range Interpretation Code Description Data Suzanna rce(s) Supporting Document(s) SARS coronavirus 2 RNA [facility] This lab was [facility] and reported by [facility]. ID Date Data Source [id number] 12/10/2019 06:50:00 AM EDT [facility] Name Value Range Interpretation Code Description Data Suzanna rce(s) Supporting Document(s) SARS coronavirus 2 RNA [facility] This lab was [facility] and reported by [facility]. ID Date Data Source [id number] 12/03/2019 08:00:00 AM EDT [facility] Name Value Range Interpretation Code Description Data Suzanna rce(s) Supporting Document(s) SARS coronavirus 2 RNA [facility] This lab was [facility] and reported by [facility]. ID Date Data Source [id number] 11/26/2019 01:15:00 PM EDT [facility] Name Value Range Interpretation Code Description Data Suzanna rce(s) Supporting Document(s) SARS coronavirus 2 RNA [facility] This lab was ordered [facility] and reported by [facility]. ID Date Data Source [id number] 11/19/2019 10:00:00 AM EDT [facility] Name Value Range Interpretation Code Description Data Suzanna rce(s) Supporting Document(s) SARS coronavirus 2 RNA [facility] This lab was [facility] and reported by [facility]. ID Date Data Source [id number] 11/14/2019 08:00:00 AM EDT [facility] Name Value Range Interpretation Code Description Data Suzanna rce(s) Supporting Document(s) SARS coronavirus 2 RNA [facility] This lab was ordered [facility] and reported by [facility]. ID Date Data Source [id number] 11/05/2019 07:06:00 AM EDT [facility] Name Value Range Interpretation Code Description Data Suzanna rce(s) Supporting Document(s) SARS coronavirus 2 RNA [facility] This lab was ordered [facility] and reported by [facility]. ID Date Data Source [id number] 10/29/2019 08:34:00 AM EDT [facility] Name Value Range Interpretation Code Description Data Suzanna rce(s) Supporting Document(s) SARS coronavirus 2 RNA [facility] This lab was ordered by [facility] and reported by [facility]. Procedure Social History Code Duration Value Status Description Data Source(s ) Smoking 06/27/2020 12:00:00 AM EDT Patient is a former smoker completed Patient is a former smoker [facility] ([employer] DATA SECURITY ANALYST) Vital Signs ID Date Data Source UNK Name Value Range Interpretation Code Description Data Source(s) Systolic blood pressure 146 mm[Hg] 146 mm[Hg] M EDENT ([employer] DATA SECURITY ANALYST) Diastolic blood pressure 72 mm[Hg] 72 mm[Hg] [facility] ([place] [employer] DATA SECURITY ANALYST) Body height 61.75 [in_i] 61.75 [in_i] [facility] ([place] [employer] DATA SECURITY ANALYST) 5'1.75" Body weight 173.00 [lb_av] 173.00 [lb_av] MEDEN T ([place] [employer] DATA SECURITY ANALYST) Body mass index (BMI) [Ratio] 31.9 kg/m2 31.9 k g/m2 [facility] ([place] [employer] DATA SECURITY ANALYST) Body surface area Derived from formula 1.79 m2 1.79 m2 [facility] ([place] [facility] DATA SECURITY ANALYST) Body temperature 97.7 [degF] 97.7 [degF] [facility] ([facility], [facility]) Body weight 168.00 [lb_av] 168.00 [lb_av] MEDEN T ([facility], [facility]) Body height 62 [in_i] 62 [in_i] [facility] ([facility], [facility]) 5'2" Body mass index (BMI) [Ratio] 30.7 kg/m2 30.7 k g/m2 [facility] ([facility], [facility]) Systolic blood pressure 145 mm[Hg] 145 mm[Hg] M EDENT ([facility], [facility]) Diastolic blood pressure 81 mm[Hg] 81 mm[Hg] [facility] ([facility], [facility]) Heart rate 69 /min 69 /min [facility], [facility]) Respiratory rate 14 /min 14 /min [facility] ( [facility], [facility]) Oxygen saturation in Arterial blood by Pulse oximetry 97 % 97 % [facility] ([facility], [facility])
[2020-12-22] MEDS ORDERED: NORCO, ANEXSIA 5/325MG TABLET (HYDROcodone/ACETAMINOPHEN) PO ONE (08:20)
--- NOTE | 2020-12-22 08:37 | REP ---
INDICATION: fall, hit head/neck, pt tender COMPARISON: None. TECHNIQUE: Axial noncontrast images from the skull base to the thoracic inlet with coronal reformations. This CT examination was performed using the following dose reduction techniques: Automated exposure control, adjustment of mA and/or kv according to the patient's size, and use of iterative reconstruction technique. FINDINGS: Atrophy with periventricular leukomalacia and microvascular ischemic changes are appreciated. The ventricles and sulci are symmetric. Jalloh-white differentiation is maintained. There is no evidence for acute intracranial hemorrhage, mass/mass effect, pathology or infarction. No extra-axial fluid collection. Calvarium is intact. Paranasal sinuses and mastoid air cells are clear. IMPRESSION: Atrophy and microvascular ischemic changes. No acute intracranial hemorrhage, infarction, or mass/mass effect. <Electronically signed by Kit Pedraza > 12/22/20 [id number]
--- NOTE | 2020-12-22 09:51 | REP ---
INDICATION: fall, pinched fingers in doorway COMPARISON: None. TECHNIQUE: Four views right hand. The study is performed at 8:38 a.m. and submitted for interpretation 9:35 a.m. for reasons unknown to me. FINDINGS: There is no evidence of acute fracture, dislocation, or intrinsic bone disease. IMPRESSION: No fracture or dislocation. <Electronically signed by Mathew Jalloh > 12/22/20 [id number]
--- NOTE | 2020-12-22 09:54 | REP ---
INDICATION: fall, pt tender. COMPARISON: None. TECHNIQUE: Three views sacrum and coccyx. The study is performed at 8:52 a.m. and is submitted for interpretation at 9:35 a.m. for reasons unknown to me. FINDINGS: There is no radiographic evidence of acute fracture, dislocation or intrinsic bone disease. Moderate degenerative changes are noted at the L5-S1 disc space. IMPRESSION: No radiographic evidence of acute fracture or dislocation. <Electronically signed by Mathew Jalloh > 12/22/20 [id number]
[2020-12-22] MEDS ORDERED: HYDR-3713 PO (10:30)
[2020-12-22 10:50] VITALS: BP 152/56
== END 2020-12-22 11:01 | disposition home or self-care (01) ==
LOC: M ED 06:10
DX: S67.192A Crushing injury of right middle finger, initial encounter (principal); S67.194A Crushing injury of right ring finger, initial encounter; S67.196A Crushing injury of right little finger, initial encounter; S09.90XA Unspecified injury of head, initial encounter; X58.XXXA Exposure to other specified factors, initial encounter; Y92.89 Other specified places as the place of occurrence of the external cause; Y99.0 Civilian activity done for income or pay; M54.9 Dorsalgia, unspecified; K21.9 Gastro-esophageal reflux disease without esophagitis; Z88.1 Allergy status to other antibiotic agents; Z88.2 Allergy status to sulfonamides; Z88.8 Allergy status to other drugs, medicaments and biological substances

== ENCOUNTER → 2020-12-25 | Outpatient (REF) | payer BC | LOC: M LAB REF 11:14 | PROVIDERS: ATTEND Physician Assistant | DX: R50.9 Fever, unspecified (principal); R53.83 Other fatigue ==

== ENCOUNTER → 2021-03-18 | Outpatient (REF) | LOC: M LABSMTC 12:06 | PROVIDERS: ATTEND Pediatrics | DX: Z11.52 Encounter for screening for COVID-19 (principal); Z20.822 Contact with and (suspected) exposure to COVID-19 ==

== ENCOUNTER → 2021-04-28 | Outpatient (CLI) | payer BC ==
[2021-04-28 10:08] LABS: BASO # 0.1 10^3/uL (0.0-0.2); BASO % 0.8 % (0.0-1.0); EOS # 0.4 10^3/uL (0.0-0.5); EOS % 4.1 % (0.0-3.0); HEMATOCRIT 42.5 % (36.0-47.0); HEMOGLOBIN 13.7 g/dl (12.0-15.5); LYMPH # 2.8 10^3/uL (1.5-5.0); LYMPH % 31.3 % (24.0-44.0); MEAN CORPUSCULAR HEMOGLOBIN 28.9 pg (27.0-33.0); MEAN CORPUSCULAR HGB CONC 32.2 g/dl (32.0-36.5); MEAN CORPUSCULAR VOLUME 89.7 fl (80.0-96.0); MONO # 0.9 10^3/uL (0.0-0.8); MONO % 9.8 % (2.0-8.0); NEUTROPHILS # 4.8 10^3/uL (1.5-8.5); NEUTROPHILS % 53.9 % (36.0-66.0); PLATELET COUNT, AUTOMATED 162 10^3/uL (150-450); RED BLOOD COUNT 4.74 10^6/uL (4.00-5.40); WHITE BLOOD COUNT 8.8 10^3/uL (4.0-10.0)
[2021-04-28 10:37] LABS: ALBUMIN 3.6 GM/DL (3.2-5.2); ALT/SGPT 20 U/L (12-78); BILIRUBIN,TOTAL 0.4 MG/DL (0.2-1.0); BLOOD UREA NITROGEN 26 MG/DL (7-18); CALCIUM LEVEL 8.7 MG/DL (8.8-10.2); CARBON DIOXIDE LEVEL 25 MEQ/L (21-32); CHLORIDE LEVEL 108 MEQ/L (98-107); CHOLESTEROL LEVEL 158 MG/DL (<200); CHOLESTEROL RISK RATIO 3.224 (<5); FERRITIN 54 NG/ML (8-252); FREE T4 1.03 NG/DL (0.76-1.46); GLOMERULAR FILTRATION RATE > 60.0 (>45); GLUCOSE, FASTING 92 MG/DL (70-100); HDL CHOLESTEROL 49 MG/DL (>40); IRON (FE) 45 UG/DL (50-170); LDL CHOLESTEROL 97 MG/DL (<100); NON-HDL-C 109 MG/DL; PERCENT SATURATION 15.6 % (13.2-45.0); POTASSIUM SERUM 4.1 MEQ/L (3.5-5.1); SODIUM LEVEL 141 MEQ/L (136-145); TOTAL 25(OH) VITAMIN D 14.3 NG/ML (30.0-100.0); TOTAL IRON BINDING CAPACITY 289 UG/DL (250-450); TRIGLYCERIDES LEVEL 62 MG/DL (<150)
[2021-04-28 10:38] LABS: FOLATE 14.4 NG/ML; VITAMIN B12 LEVEL 496 PG/ML
== END ==
LOC: M WUC 08:20
PROVIDERS: ATTEND Physician Assistant
DX: I10 Essential (primary) hypertension (principal); E78.5 Hyperlipidemia, unspecified; K21.9 Gastro-esophageal reflux disease without esophagitis; R53.83 Other fatigue; R53.1 Weakness; R20.0 Anesthesia of skin

== ENCOUNTER → 2021-06-04 | Outpatient (REF) | payer BC ==
[2021-06-04 17:19] LABS: AMORPHOUS SEDIMENT SMALL (NEGATIVE); APPEARANCE, URINE HAZY (CLEAR); BACTERIA, URINE AUTO NEGATIVE (NEGATIVE); BILIRUBIN, URINE AUTO NEGATIVE (NEGATIVE); BLOOD, URINE BLOOD NEGATIVE (NEGATIVE); COLOR, URINE YELLOW (YELLOW); GLUCOSE, URINE (UA) AUTO NEGATIVE (NEGATIVE); KETONE, URINE AUTO TRACE mg/dL (NEGATIVE); LEUKOCYTE ESTERASE, URINE AUTO NEGATIVE (NEGATIVE); MUCUS, URINE LARGE (NEGATIVE); NITRITE, URINE AUTO NEGATIVE (NEGATIVE); PROTEIN, URINE AUTO NEGATIVE (NEGATIVE); RBC, URINE AUTO 2 /HPF (0-3); SPECIFIC GRAVITY URINE AUTO 1.025 (1.002-1.035); SQUAMOUS EPITHELIAL CELL UR AU 7 /HPF (0-6); UROBILINOGEN, URINE AUTO 0.2 mg/dL (0.0-2.0); WBC, URINE AUTO 2 /HPF (0-3)
== END ==
LOC: M LAB REF 16:23
PROVIDERS: ATTEND Physician Assistant Medical
DX: N39.0 Urinary tract infection, site not specified (principal)

== ENCOUNTER → 2022-02-01 | Outpatient (CLI) | payer BC, MEDICAID, OTHER ==
[2022-02-01 10:25] LABS: BASO # 0.1 10^3/uL (0.0-0.2); BASO % 0.8 % (0.0-1.0); EOS # 0.3 10^3/uL (0.0-0.5); EOS % 2.8 % (0.0-3.0); HEMATOCRIT 48.6 % (36.0-47.0); HEMOGLOBIN 15.3 g/dl (12.0-15.5); LYMPH # 3.2 10^3/uL (1.5-5.0); LYMPH % 33.9 % (24.0-44.0); MEAN CORPUSCULAR HEMOGLOBIN 28.9 pg (27.0-33.0); MEAN CORPUSCULAR HGB CONC 31.5 g/dl (32.0-36.5); MEAN CORPUSCULAR VOLUME 91.9 fl (80.0-96.0); MONO # 0.9 10^3/uL (0.0-0.8); MONO % 9.7 % (2.0-8.0); NEUTROPHILS % 52.4 % (36.0-66.0); PLATELET COUNT, AUTOMATED 173 10^3/uL (150-450); RED BLOOD COUNT 5.29 10^6/uL (4.00-5.40); WHITE BLOOD COUNT 9.5 10^3/uL (4.0-10.0)
[2022-02-01 15:18] LABS: CHLORIDE LEVEL 105 MMOL/L (98-107); POTASSIUM SERUM 5.1 MMOL/L (3.5-5.1); SODIUM LEVEL 142 MMOL/L (136-145)
[2022-02-01 15:19] LABS: ALBUMIN 3.7 G/DL (3.2-5.2); CARBON DIOXIDE LEVEL 28 MMOL/L (20-31)
[2022-02-01 15:24] LABS: BLOOD UREA NITROGEN 20 MG/DL (9-23); GLUCOSE, FASTING 81 MG/DL (74-106); TRIGLYCERIDES LEVEL 68 MG/DL (<150)
[2022-02-01 15:26] LABS: CHOLESTEROL LEVEL 164 MG/DL (<200); CHOLESTEROL RISK RATIO 3.17 (<5); CREATININE FOR GFR 0.86 MG/DL (0.55-1.30); GLOMERULAR FILTRATION RATE > 60.0 (>45); HDL CHOLESTEROL 51.6 MG/DL (>40); LDL CHOLESTEROL 98.8 MG/DL (<100); NON-HDL-C 112 MG/DL; PHOSPHORUS LEVEL 3.7 MG/DL (2.4-5.1); THYROID STIMULATING HORMONE 2.507 uIU/ML (0.55-4.78)
[2022-02-01 15:28] LABS: FERRITIN 58.6 NG/ML (7.3-270.7); FREE T4 1.15 NG/DL (0.89-1.76)
[2022-02-01 15:29] LABS: VITAMIN B12 LEVEL 441 PG/ML (211-911)
[2022-02-03 17:15] LABS: FOLATE 18.25 NG/ML (>5.4)
[2022-02-05 10:43] LABS: TOTAL 25(OH) VITAMIN D 27.6 NG/ML (20.0-100.0)
== END ==
LOC: M WUC 08:09
PROVIDERS: ATTEND Physician Assistant
DX: E78.5 Hyperlipidemia, unspecified (principal); I10 Essential (primary) hypertension; K21.9 Gastro-esophageal reflux disease without esophagitis; R53.83 Other fatigue; R53.1 Weakness; R20.0 Anesthesia of skin; I73.00 Raynaud's syndrome without gangrene; D64.9 Anemia, unspecified

== ENCOUNTER → 2023-03-11 | Outpatient (CLI) | payer OTHER ==
[2023-03-11 13:22] LABS: BASO # 0.1 10^3/uL (0.0-0.2); BASO % 0.7 % (0.0-1.0); EOS # 0.4 10^3/uL (0.0-0.5); EOS % 4.1 % (0.0-3.0); HEMATOCRIT 45.1 % (36.0-47.0); HEMOGLOBIN 14.6 g/dl (12.0-15.5); LYMPH # 3.6 10^3/uL (1.5-5.0); LYMPH % 34.7 % (24.0-44.0); MEAN CORPUSCULAR HGB CONC 32.4 g/dl (32.0-36.5); MEAN CORPUSCULAR VOLUME 89.7 fl (80.0-96.0); MONO # 0.9 10^3/uL (0.0-0.8); MONO % 8.8 % (2.0-8.0); NEUTROPHILS # 5.4 10^3/uL (1.5-8.5); NEUTROPHILS % 51.4 % (36.0-66.0); PLATELET COUNT, AUTOMATED 180 10^3/uL (150-450); RED BLOOD COUNT 5.03 10^6/uL (4.00-5.40); WHITE BLOOD COUNT 10.4 10^3/uL (4.0-10.0)
[2023-03-11 13:36] LABS: ALBUMIN 3.5 G/DL (3.2-5.2); BLOOD UREA NITROGEN 19 MG/DL (9-23); CALCIUM LEVEL 8.6 MG/DL (8.3-10.6); CARBON DIOXIDE LEVEL 26 MMOL/L (20-31); CHLORIDE LEVEL 112 MMOL/L (98-107); CHOLESTEROL LEVEL 185 MG/DL (<200); CREATININE FOR GFR 0.76 MG/DL (0.55-1.30); GLOMERULAR FILTRATION RATE > 60.0 (>45); GLUCOSE, FASTING 93 MG/DL (74-106); HDL CHOLESTEROL 54.4 MG/DL (>40); LDL CHOLESTEROL 113.8 MG/DL (<100); NON-HDL-C 130.6 MG/DL; PHOSPHORUS LEVEL 3.8 MG/DL (2.4-5.1); POTASSIUM SERUM 4.3 MMOL/L (3.5-5.1); SODIUM LEVEL 141 MMOL/L (136-145); TRIGLYCERIDES LEVEL 84 MG/DL (<150)
[2023-03-11 13:38] LABS: FERRITIN 70.2 NG/ML (7.3-270.7); FOLATE 16.48 NG/ML (>5.4); TOTAL 25(OH) VITAMIN D 30.9 NG/ML (20.0-100.0); VITAMIN B12 LEVEL 471 PG/ML (211-911)
[2023-03-11 13:39] LABS: FREE T4 0.97 NG/DL (0.89-1.76); THYROID STIMULATING HORMONE 3.449 uIU/ML (0.55-4.78)
== END ==
LOC: M WUC 08:55
PROVIDERS: ATTEND Nurse Practitioner Adult Health
DX: R53.83 Other fatigue (principal); I10 Essential (primary) hypertension; E78.5 Hyperlipidemia, unspecified; I73.00 Raynaud's syndrome without gangrene; K21.9 Gastro-esophageal reflux disease without esophagitis; R20.0 Anesthesia of skin; R53.1 Weakness; D64.9 Anemia, unspecified

== ENCOUNTER → 2023-05-13 | Outpatient (CLI) | payer OTHER | LOC: M WUC 15:05 | PROVIDERS: ATTEND Physician Assistant | DX: S16.1XXA Strain of muscle, fascia and tendon at neck level, initial encounter (principal); S29.012A Strain of muscle and tendon of back wall of thorax, initial encounter; S46.012A Strain of muscle(s) and tendon(s) of the rotator cuff of left shoulder, initial encounter; M41.84 Other forms of scoliosis, thoracic region ==

== ENCOUNTER → 2023-06-29 | Outpatient (CLI) | payer MEDICAID | LOC: M WUC 11:41 | PROVIDERS: ATTEND Registered Nurse | DX: M25.562 Pain in left knee (principal) ==

== ENCOUNTER → 2024-02-01 | Outpatient (REF) | payer OTHER, MEDICAID | LOC: M LAB REF 16:36 | PROVIDERS: ATTEND Nurse Practitioner Family | DX: R30.0 Dysuria (principal) ==